=== PATIENT | female | born 1940 | race Caucasian/White ===

== ENCOUNTER 2018-07-26 11:37 | Observation (INO) ==
[2018-07-26] MEDS ORDERED: Ipratropium/Albuterol Neb 3 ML IH STA (12:41)
[2018-07-26 13:11] LABS: Basophils % 0.3 %; Eosinophils # 0.1 K/mcL (0.0-0.6); Eosinophils % 0.8 %; Hematocrit 39.4 % (35.3-44.9); Hemoglobin 12.4 g/dL (11.5-15.4); Immature Granulocytes % 0.3 % (0-4); Lymphocytes # 1.5 K/mcL (0.6-4.6); Lymphocytes % 14.6 %; Mean Corpuscular HGB Conc 31.5 g/dL (31.6-35.5); Mean Corpuscular Hemoglobin 25.6 pg (28.0-33.3); Mean Corpuscular Volume 81.4 fL (83.0-100.0); Monocytes # 0.5 K/mcL (0.0-1.3); Monocytes % 5.3 %; Platelet Count 317 K/mcL (140-400); Red Blood Count 4.84 M/mcL (3.82-4.97); Red Cell Distribution Width 15.9 % (11.5-14.5); Segmented Neutrophils % 78.7 %
[2018-07-26 13:18] LABS: INR 2.5; Prothrombin Time 28.5 Seconds (9.4-12.1)
[2018-07-26 13:33] LABS: Alanine Aminotransferase 9 Units/L (7-52); Albumin 3.9 g/dL (3.5-5.7); Albumin/Globulin Ratio 1.1 (1.1-2.2); Alkaline Phosphatase 84 Units/L (34-104); Aspartate Amino Transferase 19 Units/L (13-39); BUN/Creatinine Ratio 21 (6-26); Bilirubin,Total 0.6 mg/dL (0.3-1.0); Blood Urea Nitrogen 21 mg/dL (8-23); Calcium 9.2 mg/dL (8.6-10.3); Carbon Dioxide 23 mEq/L (23-29); Chloride 105 mEq/L (98-107); Globulin 3.5 g/dL (2.4-3.5); Glucose 186 mg/dL (70-105); Osmolality,Calculated 296 (280-300); Potassium 4.7 mEq/L (3.5-5.1); Sodium 139 mEq/L (136-145); Total Protein 7.4 g/dL (6.4-8.9); Troponin I < 0.03 ng/mL (< 0.04); eGFR For Non-African Americans 55 (> 60)
[2018-07-26] MEDS ORDERED: predniSONE 20 MG TABLET PO STA (15:24)
[2018-07-26] MEDS ORDERED: Furosemide 40 MG/4 ML VIAL IVP ONE (15:34)
--- NOTE | 2018-07-26 15:34 | Emergency Department Note ---
Disposition Clinical Impression: Lightheadedness, Near syncope Disposition: Admitted As Inpatient Condition: Good Referrals: Mario Serrano MD [Primary Care Provider] - General Adult HPI - General Chief complaint: ED Dizziness Stated complaint: dizzy, weakness x 3days Time Seen by Provider: 07/26/18 12:06 Source: patient, family Limitations: no limitations Nursing Notes Reviewed: Yes Vital Signs Reviewed: Yes - History of Present Illness HPI Narrative: Patient with past medical history of A. fib on Coumadin, COPD, diabetes, hypertension, hyperlipidemia presents today for evaluation of dizziness. She describes her dizziness as lightheadedness. She describes as feeling like she is going to pass out. She states that it does not feel like the room is spinning around her. She is unable to give any specific aggravating or alleviating factors. She states that it has happened to her while she has been sitting in bed. Does occasionally get worse when she is trying to get up and get around. Does not get worse specifically with head movement to the right of the left. Patient has not had any other specific associated factors. She states she has had a cough with white productive sputum for the last 2 months. She has had exertional dyspnea which is also been somewhat chronic in nature. She does wear home oxygen at night as needed. She has been using this more frequently. The daughters are in the room and states that she does not like to come to the hospital. They are concerned about her symptoms and feel as if she has been downplaying everything that has been going on. She will undergo furth er evaluation for near syncope. She will then be reevaluated with disposition pending. Pain Scale: 0 - Related Data Home Medications Medication Instructions Recorded Confirmed Acetaminophen [Tylenol] 500 mg PO Q6HR PRN 06/06/15 06/06/15 Albuterol Sulfate [Albuterol 2 puff IH Q6HR PRN 06/06/15 06/06/15 Inhaler] Aspirin 81 mg PO QAM 06/06/15 06/06/15 Diclofenac Sodium [Voltaren] 100 gm TP TID 06/06/15 06/06/15 Diltiazem HCl [Diltiazem 24Hr Cd] 360 mg PO QAM 06/06/15 06/06/15 Fluticasone/Salmeterol [Advair 1 each IH BID 06/06/15 06/06/15 500-50 Diskus] Glimepiride [Amaryl] 4 mg PO BID 06/06/15 06/06/15 LORazepam [Ativan] 0.5 mg PO BID 06/06/15 06/06/15 Levothyroxine [Synthroid] 25 mcg PO QAM 06/06/15 06/06/15 Lisinopril [Zestril] 20 mg PO QAM 06/06/15 06/06/15 Metformin [Glucophage] 1,000 mg PO BID 06/06/15 06/06/15 Montelukast [Singulair] 10 mg PO QPM 06/06/15 06/06/15 Potassium Chloride 10 meq PO QAM 06/06/15 06/06/15 Simvastatin [Zocor] 40 mg PO QPM 06/06/15 06/06/15 Tiotropium [Spiriva] 18 mcg IH DAILY 06/06/15 06/06/15 Warfarin [Coumadin] 5 mg PO QPM 06/06/15 06/06/15 Previous Rx's Medication Instructions Recorded Magnesium Hydroxide [Milk of 400 mg PO BID #20 mls 01/26/17 Magnesia] Magnesium Oxide [Magnesium] 400 mg PO BID #20 tablet 01/26/17 Metoprolol [Lopressor] 12.5 mg PO BID #10 tablet 01/26/17 Allergies Allergy/AdvReac Type Severity Reaction Status Date / Time No Known Allergies Allergy Verified 06/06/15 15:19 Review of Systems: CONSTITUTIONAL: Generalized weakness and fatigue No weight loss, fever, chills. HEENT: Eyes: No visual changes. Ears, Nose, Throat: No hearing loss, difficulty talking or unable to swallow. SKIN: No rash or itching. CARDIOVASCULAR: No chest pain, chest pressure or chest discomfort. No palpitations or edema. RESPIRATORY: Shortness of breath with exertion and white sputum production GASTROINTESTINAL: No anorexia, nausea, vomiting or diarrhea. No abdominal pain or blood. GENITOURINARY: No burning on urination or hematuria. NEUROLOGICAL: Dizziness best described as feeling as if she is going to pass out. No headache, paralysis, ataxia, numbness or tingling in the extremities. No change in bowel or bladder control. MUSCULOSKELETAL: No muscle pain, back pain, joint pain or stiffness. Past Medical History - Past Medical History Medical history: Reports: atrial fibrillation, COPD, diabetes, hyperlipidemia, hypertension Surgical history: Reports: breast surgery Psychiatric history: Reports: no psych history BLIND EYELETTER history: Reports: bilateral tubal ligation - Social History Smoking Status: Former smoker Smokeless Tobacco Status: No Alcohol use: Reports: none Drug use: Reports: none Physical Exam General: Well appearing, nontoxic, no acute distress Head: Normocephalic Atraumatic Eyes: PERRL, EOMI ENT: Airway patent, no stridor Neck: supple, no meningismus Chest: Mild wheezing best heard at the apex bilaterally Cardiac: Regular rate and rhythm Abdomen: soft, nontender, nondistended; no guarding, rebound, or tenderness to percussion Musculoskeletal: Calves symmetric, nontender, no significant swelling of the lower extremities. Skin: No rash, normal skin tone Neuro: Alert and Oriented to person, place, and time; No focal deficit, CN 2-12 symmetric and intact; strength and sensation throughout the upper lower e xtremities intact. Finger to nose intact without deficit. - General Limitations: no limitations General appearance: alert, in no apparent distress Course - Reevaluation(s) Reevaluation #1: Patient symptoms are nonspecific. EKG and blood work did not show any specific etiology. Her chest x-ray does have concern for vascular congestion and mild effusion. The patient overall has been reevaluated. She states she is symptom- free at this point. She states the breathing treatment did help her some. She is now on 2 L of oxygen which I did not appreciate on her arrival. She states that her breathing is better. She downplays her symptoms at home in regards to breathing and it does appear that she has had some significant dyspnea on exertion as well as white sputum production. She denies orthopnea and does not have significant swelling of the lower extremities. A BNP was added to her blood work which is nonspecific at approximately 100. The patient is accompanied by 3 family members. At this time do believe it will be best to further evaluate her lightheadedness as near syncope as she just describes it as such and denies vertiginous symptoms. - Consultations Consultation #1: Discussed with hospitalist. Patient accepted for admission. Vital Signs Temperature 98.0 F 07/26/18 11:44 Pulse Rate 88 07/26/18 11:44 Respiratory Rate 22 07/26/18 11:44 Blood Pressure 165/77 07/26/18 11:44 O2 Sat by Pulse Oximetry 91 07/26/18 11:44 Temperature 98.0 F 07/26/18 12:05 Pulse Rate 75 07/26/18 13:03 Respiratory Rate 16 07/26/18 13:16 Blood Pressure 142/69 07/26/18 13:03 O2 Sat by Pulse Oximetry 97 07/26/18 13:16 Oxygen Delivery Oxygen Delivery Room Air Medical Decision Making - Medical Records Medical records reviewed: Yes I reviewed the patient's medical records. - Lab Data Lab results reviewed: Yes I reviewed the patient's lab results. Result diagrams: 07/26/18 12:56 07/26/18 12:56 Lab Results 07/26/18 07/26/18 07/26/18 Range/Units 12:56 12:56 12:56 WBC 10.1 (4.3-11.1) K/mcL RBC 4.84 (3.82-4.97) M/mcL Hgb 12.4 (11.5-15.4) g/dL Hct 39.4 (35.3-44.9) % MCV 81.4 L (83.0-100.0) fL MCH 25.6 L (28.0-33.3) pg MCHC 31.5 L (31.6-35.5) g/dL RDW 15.9 H (11.5-14.5) % Plt Count 317 (140-400) K/mcL MPV 11.0 (9.4-12.4) fL Immature Gran % 0.3 (0-4) % Seg Neutrophils % 78.7 % Lymphocytes % 14.6 % Monocytes % 5.3 % Eosinophils % 0.8 % Basophils % 0.3 % Neutrophils # 8.0 (1.6-8.9) K/mcL Lymphocytes # 1.5 (0.6-4.6) K/mcL Monocytes # 0.5 (0.0-1.3) K/mcL Eosinophils # 0.1 (0.0-0.6) K/mcL Basophils # 0.0 (0.0-0.2) K/mcL PT 28.5 H (9.4-12.1) Seconds INR 2.5 Sodium 139 (136-145) mEq/L Potassium 4.7 (3.5-5.1) mEq/L Chloride 105 (98-107) mEq/L Carbon Dioxide 23 (23-29) mEq/L BUN 21 (8-23) mg/dL Creatinine 0.98 (0.60-1.20) mg/dL Est GFR ( Amer) > 60 (> 60) Est GFR (Non-Af Amer) 55 L (> 60) BUN/Creatinine Ratio 21 (6-26) Glucose 186 H (70-105) mg/dL Calculated Osmolality 296 (280-300) Calcium 9.2 (8.6-10.3) mg/dL Total Bilirubin 0.6 (0.3-1.0) mg/dL AST 19 (13-39) Units/L ALT 9 (7-52) Units/L Alkaline Phosphatase 84 (34-104) Units/L Troponin I < 0.03 (< 0.04) ng/mL B-Natriuretic Peptide (Less than 100) pg/mL Serum Total Protein 7.4 (6.4-8.9) g/dL Albumin 3.9 (3.5-5.7) g/dL Globulin 3.5 (2.4-3.5) g/dL Albumin/Globulin Ratio 1.1 (1.1-2.2) 07/26/18 Range/Units 12:56 WBC (4.3-11.1) K/mcL RBC (3.82-4.97) M/mcL Hgb (11.5-15.4) g/dL Hct (35.3-44.9) % MCV (83.0-100.0) fL MCH (28.0-33.3) pg MCHC (31.6-35.5) g/dL RDW (11.5-14.5) % Plt Count (140-400) K/mcL MPV (9.4-12.4) fL Immature Gran % (0-4) % Seg Neutrophils % % Lymphocytes % % Monocytes % % Eosinophils % % Basophils % % Neutrophils # (1.6-8.9) K/mcL Lymphocytes # (0.6-4.6) K/mcL Monocytes # (0.0-1.3) K/mcL Eosinophils # (0.0-0.6) K/mcL Basophils # (0.0-0.2) K/mcL PT (9.4-12.1) Seconds INR Sodium (136-145) mEq/L Potassium (3.5-5.1) mEq/L Chloride (98-107) mEq/L Carbon Dioxide (23-29) mEq/L BUN (8-23) mg/dL Creatinine (0.60-1.20) mg/dL Est GFR ( Amer) (> 60) Est GFR (Non-Af Amer) (> 60) BUN/Creatinine Ratio (6-26) Glucose (70-105) mg/dL Calculated Osmolality (280-300) Calcium (8.6-10.3) mg/dL Total Bilirubin (0.3-1.0) mg/dL AST (13-39) Units/L ALT (7-52) Units/L Alkaline Phosphatase (34-104) Units/L Troponin I (< 0.04) ng/mL B-Natriuretic Peptide 101 H (Less than 100) pg/mL Serum Total Protein (6.4-8.9) g/dL Albumin (3.5-5.7) g/dL Globulin (2.4-3.5) g/dL Albumin/Globulin Ratio (1.1-2.2) - Radiology Data Radiology results reviewed: Yes I reviewed the patient's radiology results. - EKG Data EKG #1 EKG attestation: Yes I reviewed and interpreted this EKG. EKG results narrative: EKG shows sinus rhythm with heart of 84. NC 185. QTC C4-6-3. Patient has no significant ST elevations or depressions. No previous EKG for comparison.
[2018-07-26] MEDS ORDERED: Acetaminophen 325 MG TABLET PO PRN (17:17)
[2018-07-26] MEDS ORDERED: Naloxone 0.4 MG/ML INJ IVP PRN (17:17)
[2018-07-26] MEDS ORDERED: *HR* HYDROcodone/Acet 5/325 mg TABLET PO PRN (17:17)
[2018-07-26] MEDS ORDERED: *HR* Dextrose 50 % in Water (Syg) 50 ML SYRINGE IVP PRN (17:22)
[2018-07-26] MEDS ORDERED: D5% in Water 1,000 ML IVC PRN (17:22)
[2018-07-26] MEDS ORDERED: Dextrose Gel 15 GM/37.5 ML TUBE PO PRN ×2 (17:22)
--- NOTE | 2018-07-26 18:35 | Internal Med History&Physical ---
Date of Encounter: 07/26/18 Time of Encounter: 18:35 Internal Medicine - H&P: HPI Chief complaint: Lightheadedness and dizziness Admitted From: Emergency Dept Plans for Post Hospital Care: Home History of present illness: Ms. Gardner is a 78 year old female past medical history hypothyroidism chronic obstructive pulmonary disease diabetes hypertension paroxysmal atrial fibrillation chronic diastolic heart failure. Patient has been experiencing dizziness/lightheadedness that has been going on for approximately 3 days. She does not describe it as his room is spinning, she has the lightheadedness when she is walking as well as when she is lying still-lightheadedness comes and goes and resolves on its own she is able to move her head without symptoms. Denies any falls has had some nausea but no vomiting did have some diarrhea yesterday that resolved. She does have shortness of breath , states this is chronic she normally is on oxygen 2-1/2 L at night however has not required any daytime use. Her sats were low on presentation improved with O2 and lasix She does have a cough with white sputum that has been going on for 2 months-she states that she normally has difficulty ambulating due to arthritis in her knees however she feels like she is "off"she denies any headaches or hearing loss she does say her vision is blurry at times. Also complains of shortness of breath on exertion as well as occasional palpitations however denies any chest pain she does have lower extremity swelling which she states is chronic denies any unusual weight loss or weight gain. She does have numbness and tingling in her feet however she does have neuropathy. Denies any slurred speech and facial droop or weakness. She presented to the emergency department with the above complaints EKG showed normal sinus rhythm lab work is unremarkable chest x-ray does show a questionable trace bilateral pleural effusion and underlying bibasilar airspace opacities possibly represent atelectasis or pneumonia however appearance could be related to overlying soft tissue. pulmonary vascular congestion and/or chronic change. Patient has been admitted for further workup and evaluation. Currently patient denies any chest pain shortness of breath and is hemodynamically stable at this time, she intubated without difficulty and denied any chest pain lightheadedness or palpitations Past Med Surg Social Fam HX - Past Medical History Medical history: atrial fibrillation, COPD, diabetes, hyperlipidemia, hypertension Psychiatric history: no psych history - Past Surgical History Surgical History: breast surgery Additional surgical history: mass removed from left breast - Social History Smoking Status: Former smoker Smokeless Tobacco Status: No Alcohol use: none Drug use: none - Family History Father Hx Family Cardiac Disorders: Yes Internal Medicine - H&P: Meds Diltiazem HCl [Diltiazem 24Hr Cd] 360 mg PO QAM 06/06/15 [History] Glimepiride [Amaryl] 4 mg PO BID 06/06/15 [History] Simvastatin [Zocor] 40 mg PO QPM 06/06/15 [History] Acetaminophen [Pain Reliever] 500 mg PO Q6H PRN 07/26/18 [History] Albuterol Sulfate [Proair Hfa] 1 puff IH Q4H PRN 07/26/18 [History] Esomeprazole Magnesium [Nexium 24Hr] 20 mg PO DAILY PRN 07/26/18 [History] Fluticasone/Salmeterol [Advair 500-50 Diskus] 1 each IH QAM 07/26/18 [History] LORazepam [Ativan] 0.5 mg PO BID 07/26/18 [History] Levothyroxine [Synthroid] 25 mcg PO QAM 07/26/18 [History] Losartan Potassium [Cozaar] 100 mg PO QAM 07/26/18 [History] Metformin HCl 1,000 mg PO BID 07/26/18 [History] Metoprolol Succinate 100 mg PO QPM 07/26/18 [History] Montelukast [Singulair] 10 mg PO HS 07/26/18 [History] Potassium Chloride [Klor-Con 10] 10 meq PO QAM 07/26/18 [History] Tiotropium [Spiriva] 18 mcg IH QAM 07/26/18 [History] Warfarin [Coumadin] 2.5 mg PO MOTU 07/26/18 [History] Warfarin [Coumadin] 5 mg PO SUWETHFRSA 07/26/18 [History] hydroCHLOROthiazide [Hydrochlorothiazide] 25 mg PO QAM 07/26/18 [History] Allergy/AdvReac Type Severity Reaction Status Date / Time No Known Allergies Allergy Verified 07/26/18 17:18 All Systems PM: A 10-system review of systems was performed and is negative for pertinent findings except as documented above in the HPI. - Constitutional Constitutional: no chills, no fever(s), no night sweats - EENT Eyes: blurry vision Ears: no ear discharge, no ear pain, no tinnitus Nose, mouth and throat: no dysphagia, no nasal discharge, no neck pain, no sore throat - Cardiovascular Cardiovascular ROS IM: dyspnea on exertion, edema, palpitations - Respiratory Respiratory: cough, dyspnea on exertion - Gastrointestinal Gastrointestinal: no abdominal pain, no diarrhea, no hematemesis, no hematochezia, no melena, no nausea, no vomiting - Genitourinary Genitourinary: no change in urinary stream, no dysuria, no flank pain, no hemat uria - Musculoskeletal Musculoskeletal ROS IM: arthralgias, no numbness, no tingling - Integumentary Integumentary IM: no rash, no unusual bruising - Neurological Neurological ROS: dizziness, no confusion, no convulsions, no focal weakness, no numbness, no tingling, no tremor(s) - Hematologic/Lymphatic Hematologic/Lymphatic: no easy bruising - Constitutional Vitals: Temp Pulse Resp BP Pulse Ox 98.0 F 89 20 142/76 97 07/26/18 12:05 07/26/18 17:19 07/26/18 17:19 07/26/18 17:19 07/26/18 17:19 General appearance: Present: A&O X 3, morbidly obese Exam: see below - Head Head exam: Present: atraumatic, normocephalic - Eye Eye exam: Present: PERRL, conjuntiva pink, sclera anicteric Pupils: Present: PERRL - Neck Neck exam general surgery: Present: supple, trachea midline. Absent: lymphadenopathy - Respiratory Respiratory exam: Present: CTAB, wheezes. Absent: accessory muscle use, rales, rhonchi Additional comments: Clear with occasional faint expiratory wheeze - Cardiovascular Cardiovascular exam: Present: RRR, +S1, +S2. Absent: diastolic murmur, gallop, rubs, systolic murmur - GI/Abdominal GI/Abdominal exam: Present: normal bowel sounds, soft, no peritoneal signs. Absent: distended, tenderness - Extremities Exam Extremities exam: Present: warm, radial pulses palpable and symmetrical. Absent: calf tenderness, cyanotic, pedal edema - Neurological Exam Neurological exam: Present: alert, CN II-XII intact, oriented X3, no focal deficits, strengths equal and symetr throughout. Absent: pronater drift, facial droop, speech deficit - Skin Skin exam: Present: dry, intact Internal Med - H&P Results - Labs CBC & Chem 7: 07/26/18 12:56 07/26/18 12:56 Labs: Short CBC 07/26/18 Range/Units 12:56 WBC 10.1 (4.3-11.1) K/mcL Hgb 12.4 (11.5-15.4) g/dL Hct 39.4 (35.3-44.9) % Plt Count 317 (140-400) K/mcL Neutrophils # 8.0 (1.6-8.9) K/mcL BMP 07/26/18 12:56 Sodium 139 Potassium 4.7 Chloride 105 Carbon Dioxide 23 BUN 21 Creatinine 0.98 Glucose 186 H Calcium 9.2 Cardiac Enzymes 07/26/18 Range/Units 12:56 Troponin I < 0.03 (< 0.04) ng/mL Liver Function 07/26/18 Range/Units 12:56 Total Bilirubin 0.6 (0.3-1.0) mg/dL AST 19 (13-39) Units/L ALT 9 (7-52) Units/L Alkaline Phosphatase 84 (34-104) Units/L Albumin 3.9 (3.5-5.7) g/dL - EKG Data EKG shows normal: sinus rhythm - Impressions ITS Impressions Chest X-Ray 07/26/18 12:06 IMPRESSION: 1. Questionable trace bilateral pleural effusions and underlying bibasilar airspace opacities potentially representing atelectasis or pneumonia. However, the appearance could also be related to overlying soft tissues. 2. Pulmonary vascular congestion and/or chronic interstitial change. D/ / Sincere Prince MD / Sincere Prince MD Interpreting Provider: Sincere Prince MD - Diagnostic Studies Chest x-ray Additional comments: Chest X-Ray 07/26/18 12:06 IMPRESSION: 1. Questionable trace bilateral pleural effusions and underlying bibasilar airspace opacities potentially representing atelectasis or pneumonia. However, the appearance could also be related to overlying soft tissues. 2. Pulmonary vascular congestion and/or chronic interstitial change. D/ / Sincere Prince MD / Sincere Prince MD Interpreting Provider: Sincere Prince MD - Assessment and plan (1) Lightheadedness Current Visit: Yes Status: Acute Assessment and plan: Patient has been experiencing some lightheadedness -denies any vertigo symptoms there is no nystagmus noted neuro check with no focal deficits cranial nerves II through XII intact-she does complain of off and on blurry vision-no urinary symptoms has chronic cough does have history of CHF and COPD does admit to palpitations-does have some vascular congestion as well as lower extremity edema which she states is chronic denies any weight gain she does have history of paroxysmal atrial fibrillation unsure if this is contributing to her lightheadedness- she did have low Sp02 on presentation and required O2 supplementation- which improved after oxygen and lasix does not appear to have any infectious process there is no elevated white count urinalysis is negative for fever Continuous cardiac monitoring We will check cardiac echo Orthostatics okay in the ER we will recheck in the a.m. Fall precautions monitor her electrolytes PT and OT for evaluation 6 min walk test before discharge (2) CHF (congestive heart failure) Current Visit: Yes Status: Chronic Assessment and plan: Patient reports history of CHF. Upon review of records it appears patient has history of diastolic heart failure-TTE 08/30/14 shows EF of 6065% probable mild DDD no significant valvular disease-she did have a nuclear stress test 08/30/14 with EF of greater than 70% negative for ischemia or infarct She has been experiencing shortness of breath on exertion as well as some palpitations She does have lower extremity edema which she states is chronic We will obtain cardiac echo Monitor intake and output daily weight We will continue with Lasix 20 IVP daily Continue with metoprolol trend troponins Qualifiers: Heart failure type: diastolic Heart failure chronicity: chronic Qualified Code(s): I50.32 - Chronic diastolic (congestive) heart failure (3) Atrial fibrillation Current Visit: No Status: Acute Assessment and plan: 1 history of paroxysmal atrial fibrillation currently in sinus rhythm-does complain of palpitations and shortness of breath Continue with cardiazem Continue with Coumadin pharmacy to dose Continuous cardiac monitoring Obtain cardiac echo Qualifiers: Atrial fibrillation type: paroxysmal Qualified Code(s): I48.0 - Paroxysmal atrial fibrillation (4) COPD (chronic obstructive pulmonary disease) Current Visit: No Status: Acute Assessment and plan: History of COPD she does use oxygen at night-continue with oxygen as needed-she does not appear to be in any exacerbation Continue with bronchodilators Qualifiers: COPD type: unspecified COPD Qualified Code(s): J44.9 - Chronic obstructive pulmonary disease, unspecified (5) Diabetes mellitus Current Visit: No Status: Acute Assessment and plan: Accu-Cheks before meals and at bedtime with sliding scale insulin we will hold metformin/Amaryl for now resume at discharge Diabetic diet Qualifiers: Diabetes mellitus type: type 2 Diabetes mellitus superintendent container terminal insulin use: without fpc use Diabetes mellitus complication status: without complication Qualified Code(s): E11.9 - Type 2 diabetes mellitus without complications (6) Hyperlipidemia Current Visit: No Status: Acute Assessment and plan: Continue a statin Qualifiers: Hyperlipidemia type: unspecified Qualified Code(s): E78.5 - Hyperlipidemia, unspecified (7) Obesity Current Visit: No Status: Acute Assessment and plan: Encouraged lifestyle changes including diet as well as exercise PT OT evaluation Qualifiers: Obesity type: due to excess calories Obesity classification: adult class 3 (BMI >= 40) Serious obesity comorbidity presence: with serious comorbidity Body mass index: BMI 45.0-49.9 Qualified Code(s): E66.01 - Morbid (severe) obesity due to excess calories; Z68.42 - Body mass index (BMI) 45.0-49.9, adult (8) DVT prophylaxis Current Visit: Yes Status: Acute Assessment and plan: On Coumadin - Time Spent With Patient Total time spent is greater than 50% in coordination of care (as documented) at patient's floor/unit and/or counseling patient:
[2018-07-26] MEDS ORDERED: *HR* Warfarin 2.5 MG TABLET PO ONE (20:30)
[2018-07-26] MEDS ORDERED: Metoprolol XL (24 HR) Succ 50 MG TAB.ER.24H PO SCH (20:45)
[2018-07-26] MEDS ORDERED: Insulin LISPRO 300 UNITS/3 ML VIAL SQ SCH (21:00)
[2018-07-27 00:33] LABS: Bilirubin,Urine Negative (Negative); Blood,Urine Negative (Negative); Clarity,Urine Clear (Clear); Color,Urine Yellow (Yellow); Glucose,Urine (UA) Normal (Normal); Ketones,Urine Negative (Negative); Leukocyte Esterase,Urine Trace (Negative); Nitrite,Urine Positive (Negative); PH,Urine 5.5 pH Units (5.0-8.0); Protein,Urine Negative (Neg-Trace); Specific Gravity,Urine 1.011 (1.010-1.025); Urobilinogen,Urine Normal (Normal)
[2018-07-27 00:36] LABS: Bacteria,Urine Many per hpf (None-Few); Hyaline Casts,Urine None Seen per lpf (None-Few); RBC,Urine 0-3 per hpf (0-3); Squamous Epithelial Cell,Urine Moderate per lpf (None-Few)
[2018-07-27 01:00] LABS: Basophils % 0.1 %; Hematocrit 38.4 % (35.3-44.9); Hemoglobin 11.9 g/dL (11.5-15.4); Immature Granulocytes % 0.3 % (0-4); Lymphocytes # 0.8 K/mcL (0.6-4.6); Lymphocytes % 7.6 %; Mean Corpuscular Volume 80.7 fL (83.0-100.0); Mean Platelet Volume 10.5 fL (9.4-12.4); Monocytes # 0.1 K/mcL (0.0-1.3); Monocytes % 0.9 %; Neutrophils # 9.5 K/mcL (1.6-8.9); Platelet Count 277 K/mcL (140-400); Red Blood Count 4.76 M/mcL (3.82-4.97); Red Cell Distribution Width 15.7 % (11.5-14.5); Segmented Neutrophils % 91.1 %
[2018-07-27 01:18] LABS: INR 2.3; Prothrombin Time 25.7 Seconds (9.4-12.1)
[2018-07-27 01:21] LABS: Calcium 9.4 mg/dL (8.6-10.3); Chol/HDL Ratio 3.9 (0-4.9); Magnesium 1.5 mg/dL (1.6-2.6); Potassium 3.8 mEq/L (3.5-5.1)
[2018-07-27 01:33] LABS: Thyroid Stimulating Hormone 1.549 mcIU/mL (0.340-5.600)
[2018-07-27] MEDS ORDERED: Levothyroxine 25 MCG TABLET PO SCH (06:30)
[2018-07-27] MEDS ORDERED: Insulin LISPRO 300 UNITS/3 ML VIAL SQ SCH ×3 (07:30→21:00)
--- NOTE | 2018-07-27 08:59 | Internal Med Progress Note ---
Hospitalist Progress Note - Encounter Date of Encounter: 07/27/18 Time of Encounter: 08:56 - Subjective Interval History: Feel better this morning, no c/o dizziness; fatigue is improving. Able to ambulate throughout room without difficulty or dyspnea on exertion. C/o increased urinary frequency as well as urge to urinate. - Exam Vitals: Temp Pulse Resp BP Pulse Ox 97.8 F 83 20 133/80 95 07/27/18 06:47 07/27/18 06:47 07/27/18 06:47 07/27/18 06:47 07/27/18 06:47 Exam: PHYSICAL EXAMINATION: GENERAL: The patient is an obese elder female, no distress, A&O x3 HEENT: Head is normocephalic and atraumatic. Extraocular muscles are intact. Pupils are equal, round, and reactive to light and accommodation. NECK: Supple. No carotid bruits. No lymphadenopathy or thyromegaly. LUNGS: Clear to auscultation AP&L. HEART: Regular rate and rhythm, s1, s2 without murmur. ABDOMEN: Soft, nontender, and nondistended. Positive bowel sounds. No hepatosplenomegaly was noted. EXTREMITIES: Without any cyanosis, clubbing, rash, lesions. non-pitting, generalized BLE edema NEUROLOGIC: Cranial nerves II through XII are grossly intact. - Assessment and Plan (1) Lightheadedness Current Visit: Yes Status: Acute Assessment and Plan: Patient has been experiencing some lightheadedness, weakness and fatigue some dyspnea on exertion but reports h/o CHF and COPD CXR per my evaluation with chronic changes, possible mild pulmonary vascular congestion treated with IV lasix resting comfortably on room air without respiratory distress Continuous cardiac monitoring We will check cardiac echo Negative for orthostasis Fall precautions PT and OT for evaluation 6 min walk test before discharge (2) UTI (urinary tract infection) Current Visit: Yes Status: Acute Assessment and Plan: Presented with lightheadedness weakness fatigue Urinalysis positive for nitrates and leukocyte esterase, as well as pyuria and bacteriuria Patient reporting increased urinary frequency and urgency; denies dysuria No prior history of UTI Treat with 1 g Rocephin daily urine culture pending (3) Atrial fibrillation Current Visit: No Status: Acute Assessment and Plan: history of PAF currently in sinus rhythm Has C/o of intermittent palpitations Continue with cardiazem Continue with Coumadin pharmacy to dose Continuous cardiac monitoring Obtain cardiac echo 07/27- remains SR rate of 70-80's, resting comfortably in bed at this time, continue with POC as stated above. (4) Diabetes mellitus Current Visit: No Status: Acute Assessment and Plan: History of diabetes Blood glucose remains elevated this morning Increase sliding scale coverage Continue holding oral hypoglycemic agents while inpatient Continue diabetic diet Resume metformin/Amaryl DC (5) COPD (chronic obstructive pulmonary disease) Current Visit: No Status: Acute Assessment and Plan: per hx not in acute exacerbation Continue with bronchodilators resting comfortably on room air without distress (6) Obesity Current Visit: No Status: Acute Assessment and Plan: Discussed lifestyle changes including diet as well as exercise PT/OT evaluation (7) Hyperlipidemia Current Visit: No Status: Acute Assessment and Plan: Cont statin (8) CHF (congestive heart failure) Current Visit: Yes Status: Chronic Assessment and Plan: Patient reports history of CHF. Upon review of records it appears patient has history of diastolic heart failure-TTE 08/30/14 shows EF of 60-65% probable mild DD, no significant valvular disease nuclear stress test 08/30/14 with EF of greater than 70% negative for ischemia or infarct She has been experiencing shortness of breath on exertion as well as some palpitations Now resting comfortably on room air at bedside. Able to ambulate throughout the room without difficulty or O2 She does have lower extremity non-pitting edema which she states is chronic obtain echo-pending Monitor intake and output daily weight Discontinue Lasix 20 IVP daily Continue with metoprolol Serial troponins negative 3 (9) DVT prophylaxis Current Visit: Yes Status: Acute Assessment and Plan: On Coumadin pharmacy dosing - Time Spent with Patient Total time spent is greater than 50% in coordination of care (as documented) at patient's floor/unit and/or counseling patient: Internal Medicine: Result - Labs CBC & Chem 7: 07/27/18 00:49 07/27/18 00:49 Labs: Short CBC 07/26/18 07/27/18 Range/Units 12:56 00:49 WBC 10.1 10.4 (4.3-11.1) K/mcL Hgb 12.4 11.9 (11.5-15.4) g/dL Hct 39.4 38.4 (35.3-44.9) % Plt Count 317 277 (140-400) K/mcL Neutrophils # 8.0 9.5 H (1.6-8.9) K/mcL BMP 07/26/18 07/27/18 12:56 00:49 Sodium 139 137 Potassium 4.7 3.8 Chloride 105 102 Carbon Dioxide 23 24 BUN 21 28 H Creatinine 0.98 1.12 Glucose 186 H 239 H Calcium 9.2 9.4 Cardiac Enzymes 07/26/18 07/26/18 07/27/18 Range/Units 12:56 19:22 00:49 Troponin I < 0.03 < 0.03 < 0.03 (< 0.04) ng/mL 07/27/18 Range/Units 07:52 Troponin I < 0.03 (< 0.04) ng/mL Liver Function 07/26/18 Range/Units 12:56 Total Bilirubin 0.6 (0.3-1.0) mg/dL AST 19 (13-39) Units/L ALT 9 (7-52) Units/L Alkaline Phosphatase 84 (34-104) Units/L Albumin 3.9 (3.5-5.7) g/dL Urine 07/27/18 Range/Units 00:10 Urine Color Yellow (Yellow) Urine Clarity Clear (Clear) Urine pH 5.5 (5.0-8.0) pH Units Ur Specific Jessie 1.011 (1.010-1.025) Urine Protein Negative (Neg-Trace) mg/dL Urine Glucose (UA) Normal (Normal) mg/dL - ABG Interpretation ABG results: PT/INR, D-dimer PT 25.7 Seconds (9.4-12.1) H 07/27/18 00:49 - Impressions Impressions Chest X-Ray 07/26/18 12:06 IMPRESSION: 1. Questionable trace bilateral pleural effusions and underlying bibasilar airspace opacities potentially representing atelectasis or pneumonia. However, the appearance could also be related to overlying soft tissues. 2. Pulmonary vascular congestion and/or chronic interstitial change. D/ / Sincere Prince MD / Sincere Prince MD Interpreting Provider: Sincere Prince MD Consult Discharge Plan - Plan Referrals: Mario Serrano MD [Primary Care Provider] - (3) Atrial fibrillation Qualifiers: Atrial fibrillation type: paroxysmal Qualified Code(s): I48.0 - Paroxysmal atrial fibrillation (4) Diabetes mellitus Qualifiers: Diabetes mellitus type: type 2 Diabetes mellitus extermination inspector insulin use: without extermination inspector use Diabetes mellitus complication status: without complication Qualified Code(s): E11.9 - Type 2 diabetes mellitus without complications (5) COPD (chronic obstructive pulmonary disease) Qualifiers: COPD type: unspecified COPD Qualified Code(s): J44.9 - Chronic obstructive pulmonary disease, unspecified (6) Obesity Qualifiers: Obesity type: due to excess calories Obesity classification: adult class 3 (BMI >= 40) Serious obesity comorbidity presence: with serious comorbidity Body mass index: BMI 45.0-49.9 Qualified Code(s): E66.01 - Morbid (severe) obesity due to excess calories; Z68.42 - Body mass index (BMI) 45.0-49.9, adult (7) Hyperlipidemia Qualifiers: Hyperlipidemia type: unspecified Qualified Code(s): E78.5 - Hyperlipidemia, unspecified (8) CHF (congestive heart failure) Qualifiers: Heart failure type: diastolic Heart failure chronicity: chronic Qualified C ode(s): I50.32 - Chronic diastolic (congestive) heart failure
[2018-07-27] MEDS ORDERED: *HR* LORazepam 0.5 MG TABLET PO SCH (09:00)
[2018-07-27] MEDS ORDERED: cefTRIAXone 1,000 MG in 0.9 % Sodium Chloride Mini Bag 100 ML IVPB SCH (09:00)
[2018-07-27] MEDS ORDERED: Tiotropium 18 MCG inhalation IH SCH (09:00)
[2018-07-27] MEDS ORDERED: Budesonide/Formoterol 160/4.5 1 PUFF INH IH SCH (09:00)
[2018-07-27] MEDS ORDERED: Furosemide 20 MG/2 ML VIAL IVP SCH (09:00)
[2018-07-27] MEDS ORDERED: Diltiazem CD (24hr) 180 MG CAPSULE PO SCH (09:00)
[2018-07-27] MEDS ORDERED: Perflutren Lipid Microsphere 1.3 ML in 0.9 % Sodium Chloride 8.7 ML IVP ONE (09:42)
[2018-07-27 10:57] VITALS: BP 149/73
--- NOTE | 2018-07-27 11:43 | Discharge Summary ---
- NOTES TO OUTPATIENT PROVIDER Notes to Outpatient Provider: basic d/c follow-up Orders not resulted at time of discharge: Pending orders 07/27/18 00:10 Culture,Urine [RM] Stat 07/28/18 04:00 Hgb A1C AM 0400 Prothrombin Time INR [COAG] AM 0400 07/29/18 04:00 Prothrombin Time INR [COAG] AM 0400 07/30/18 04:00 Prothrombin Time INR [COAG] AM 0400 Date of Encounter: 07/27/18 Time of Encounter: 11:38 - Discharge Diagnosis (1) Lightheadedness Priority: Primary Status: Acute Assessment and Plan: Patient has been experiencing some lightheadedness, weakness and fatigue some dyspnea on exertion but reports h/o CHF and COPD CXR per my evaluation with chronic changes, possible mild pulmonary vascular congestion treated with IV lasix resting comfortably on room air without respiratory distress Continuous cardiac monitoring We will check cardiac echo Negative for orthostasis Fall precautions PT and OT for evaluation 6 min walk test before discharge (2) UTI (urinary tract infection) Priority: Secondary Status: Acute Assessment and Plan: Presented with lightheadedness weakness fatigue Urinalysis positive for nitrates and leukocyte esterase, as well as pyuria and bacteriuria Patient reporting increased urinary frequency and urgency; denies dysuria No prior history of UTI Treat with 1 g Rocephin daily urine culture pending Qualifiers: Urinary tract infection type: site unspecified Hematuria presence: without hematuria Qualified Code(s): N39.0 - Urinary tract infection, site not specified (3) Atrial fibrillation Priority: Secondary Status: Acute Assessment and Plan: history of PAF currently in sinus rhythm Has C/o of intermittent palpitations Continue with cardiazem Continue with Coumadin pharmacy to dose Continuous cardiac monitoring Obtain cardiac echo 07/27- remains SR rate of 70-80's, resting comfortably in bed at this time, continue with POC as stated above. Qualifiers: Atrial fibrillation type: paroxysmal Qualified Code(s): I48.0 - Paroxysmal atrial fibrillation (4) Diabetes mellitus Priority: Secondary Status: Acute Assessment and Plan: History of diabetes Blood glucose remains elevated this morning Increase sliding scale coverage Continue holding oral hypoglycemic agents while inpatient Continue diabetic diet Resume metformin/Amaryl DC Qualifiers: Diabetes mellitus type: type 2 Diabetes mellitus prison insulin use: without intermediate card tender use Diabetes mellitus complication status: without complication Qualified Code(s): E11.9 - Type 2 diabetes mellitus without complications (5) COPD (chronic obstructive pulmonary disease) Priority: Secondary Status: Acute Assessment and Plan: per hx not in acute exacerbation Continue with bronchodilators resting comfortably on room air without distress Qualifiers: COPD type: unspecified COPD Qualified Code(s): J44.9 - Chronic obstructive pulmonary disease, unspecified (6) Obesity Priority: Secondary Status: Acute Assessment and Plan: Discussed lifestyle changes including diet as well as exercise PT/OT evaluation Qualifiers: Obesity type: due to excess calories Obesity classification: adult class 3 (BMI >= 40) Serious obesity comorbidity presence: with serious comorbidity Body mass index: BMI 45.0-49.9 Qualified Code(s): E66.01 - Morbid (severe) obesity due to excess calories; Z68.42 - Body mass index (BMI) 45.0-49.9, adult (7) Hyperlipidemia Priority: Secondary Status: Acute Assessment and Plan: Cont statin Qualifiers: Hyperlipidemia type: unspecified Qualified Code(s): E78.5 - Hyperlipidemia, unspecified (8) CHF (congestive heart failure) Priority: Secondary Status: Chronic Assessment and Plan: Patient reports history of CHF. Upon review of records it appears patient has history of diastolic heart failure-TTE 08/30/14 shows EF of 60-65% probable mild DD, no significant valvular disease nuclear stress test 08/30/14 with EF of greater than 70% negative for ischemia or infarct She has been experiencing shortness of breath on exertion as well as some palpitations Now resting comfortably on room air at bedside. Able to ambulate throughout the room without difficulty or O2 She does have lower extremity non-pitting edema which she states is chronic obtain echo-pending Monitor intake and output daily weight Discontinue Lasix 20 IVP daily Continue with metoprolol Serial troponins negative 3 Qualifiers: Heart failure type: diastolic Heart failure chronicity: chronic Qualified Code(s): I50.32 - Chronic diastolic (congestive) heart failure (9) DVT prophylaxis Priority: Secondary Status: Acute Hospital course: Ms. Gardner is a 78 year old female admitted with dizziness, and lightheadedness x 3 days. Positive UA with nitrates, pyuria and leukocyte esterase likely contributing to dizziness and fatigue. Also concerns for mild CHF exacerbation. Treated with lasix and improved; no longer dyspneic. Treated with IV Rocephin x1 dose. D/c with 5-day course of Omnicef. On day of d/c dizziness has resolved. Discharge discussed with: patient, nurse - Time Spent with Patient Total time spent providing and/or coordinating discharge services: Less than 30 minutes - Discharge Medications Home Medications: Diltiazem HCl [Diltiazem 24Hr Cd] 360 mg PO QAM 06/06/15 [History] Glimepiride [Amaryl] 4 mg PO BID 06/06/15 [History] Simvastatin [Zocor] 40 mg PO QPM 06/06/15 [History] Acetaminophen [Pain Reliever] 500 mg PO Q6H PRN 07/26/18 [History] Albuterol Sulfate [Proair Hfa] 1 puff IH Q4H PRN 07/26/18 [History] Esomeprazole Magnesium [Nexium 24Hr] 20 mg PO DAILY PRN 07/26/18 [History] Fluticasone/Salmeterol [Advair 500-50 Diskus] 1 each IH QAM 07/26/18 [History] LORazepam [Ativan] 0.5 mg PO BID 07/26/18 [History] Levothyroxine [Synthroid] 25 mcg PO QAM 07/26/18 [History] Losartan Potassium [Cozaar] 100 mg PO QAM 07/26/18 [History] Metformin HCl 1,000 mg PO BID 07/26/18 [History] Metoprolol Succinate 100 mg PO QPM 07/26/18 [History] Montelukast [Singulair] 10 mg PO HS 07/26/18 [History] Potassium Chloride [Klor-Con 10] 10 meq PO QAM 07/26/18 [History] Tiotropium [Spiriva] 18 mcg IH QAM 07/26/18 [History] Warfarin [Coumadin] 2.5 mg PO MOTU 07/26/18 [History] Warfarin [Coumadin] 5 mg PO SUWETHFRSA 07/26/18 [History] hydroCHLOROthiazide [Hydrochlorothiazide] 25 mg PO QAM 07/26/18 [History] Cefdinir [Omnicef] 300 mg PO BID 5 Days #10 capsule 07/27/18 [Rx] Allergies/Adverse Reactions: Allergy/AdvReac Type Severity Reaction Status Date / Time No Known Allergies Allergy Verified 07/26/18 17:18 Date of admission: 07/26/18 16:37 Primary care physician: Mario Serrano MD Consults: 07/26/18 19:23 Consult to Physical Therapy [CONS] Routine Comment: Evaluate, develop and implement POC Reason for Consult: Unsteady gait Does patient have active BEDREST order?: No Is patient medically & hemodynamically stable?: Yes Patient assessed for mobility or mobilized this visit?: No 07/26/18 19:25 Consult to Occupational Therapy [CONS] Routine Comment: Evaluate, develop and implement POC Reason for Consult: Deconditioning/lightheadedness Does patient have active BEDREST order?: No Is patient medically & hemodynamically stable?: Yes Patient assessed for mobility or mobilized this visit?: Yes 07/27/18 08:14 Consult to Nurse Navigator [CONS] Routine Comment: COPD,CHF Discharging clinician: Ronan Griffith Anticipated date of discharge: 07/27/18 - Constitutional Vitals: Temp Pulse Resp BP Pulse Ox 97.7 F 68 16 149/73 94 07/27/18 10:55 07/27/18 10:55 07/27/18 10:55 07/27/18 10:55 07/27/18 10:55 General appearance: Present: A&O X 3, morbidly obese Exam: see exam - Head Head exam: Present: atraumatic, normocephalic - Eye Eye exam: Present: PERRL, conjuntiva pink, sclera anicteric Pupils: Present: PERRL - Neck Neck exam general surgery: Present: supple, trachea midline. Absent: lymphadenopathy - Respiratory Respiratory exam: Present: CTAB. Absent: accessory muscle use, rales, rhonchi, wheezes - Cardiovascular Cardiovascular exam: Present: RRR, +S1, +S2. Absent: diastolic murmur, gallop, rubs, systolic murmur - GI/Abdominal GI/Abdominal exam: Present: normal bowel sounds, soft, no peritoneal signs. Absent: distended, tenderness - Extremities Exam Extremities exam: Present: warm, radial pulses palpable and symmetrical. Absent: calf tenderness, cyanotic, pedal edema - Neurological Exam Neurological exam: Present: CN II-XII intact, oriented X3, no focal deficits. Absent: pronater drift, facial droop, speech deficit - Skin Skin exam: Present: dry, intact - Patient Status Disposition: Home, Self-Care Condition: Good Functional capacity at discharge: independent ambulation Overall status at discharge: patient is progressing back to baseline - Discharge Instructions Instructions: Urinary Tract Infection in Women (DC) Follow Up With: Mario Serrano MD [Primary Care Provider] - 08/03/18 10:15 am Forms: ED Satisfaction Letter - Diet and Activity Activity: increase activity as tolerated, resume usual activities as tolerated Diet: diabetic diet, low fat, low cholesterol, low salt diet
[2018-07-27] MEDS ORDERED: Warfarin perPT PO PRN (18:00)
[2018-07-27] MEDS ORDERED: *HR* Warfarin 5 MG TABLET PO ONE (18:00)
--- NOTE | 2018-07-30 19:18 | Electrocardiograph Report ---
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
== END 2018-07-27 13:57 | disposition home or self-care (01) ==
LOC: 3BNU 11:37 → EMEROOARM 11:37 → 3BNU 17:46
PROVIDERS: ADMIT Hospitalist; ATTEND Hospitalist

== ENCOUNTER 2020-06-13 16:21 | Observation (INO) ==
[2020-06-13] MEDS ORDERED: Ipratropium/Albuterol Neb 3 ML IH ONE (16:53)
[2020-06-13] MEDS ORDERED: methylPREDNISolone 125 MG/2 ML VIAL IVP ONE (16:53)
[2020-06-13 17:04] LABS: Basophils # 0.1 K/mcL (0.0-0.2); Basophils % 0.4 %; Eosinophils # 0.1 K/mcL (0.0-0.6); Eosinophils % 0.7 %; Hematocrit 38.1 % (35.3-44.9); Hemoglobin 11.4 g/dL (11.5-15.4); Immature Granulocytes % 0.3 % (0-4); Lymphocytes # 1.6 K/mcL (0.6-4.6); Lymphocytes % 11.2 %; Mean Corpuscular HGB Conc 29.9 g/dL (31.6-35.5); Mean Corpuscular Hemoglobin 24.2 pg (28.0-33.3); Mean Corpuscular Volume 80.9 fL (83.0-100.0); Monocytes # 0.9 K/mcL (0.0-1.3); Monocytes % 6.2 %; Neutrophils # 11.3 K/mcL (1.6-8.9); Platelet Count 299 K/mcL (140-400); Red Blood Count 4.71 M/mcL (3.82-4.97); Red Cell Distribution Width 17.2 % (11.5-14.5); Segmented Neutrophils % 81.2 %; White Blood Count 13.9 K/mcL (4.3-11.1)
[2020-06-13 17:11] LABS: INR 1.9; Prothrombin Time 21.8 Seconds (9.4-12.1)
[2020-06-13 17:13] LABS: Activated Partial Thrombo Time 41.5 Seconds (26.0-36.0)
[2020-06-13 17:27] LABS: Alanine Aminotransferase 10 Units/L (7-52); Albumin 3.9 g/dL (3.5-5.7); Albumin/Globulin Ratio 1.2 (1.1-2.2); Alkaline Phosphatase 74 Units/L (34-104); Aspartate Amino Transferase 10 Units/L (13-39); BUN/Creatinine Ratio 22 (6-26); Bilirubin,Direct 0.1 mg/dL (0.0-0.2); Bilirubin,Indirect 0.4 mg/dL (0.0-1.0); Bilirubin,Total 0.5 mg/dL (0.3-1.0); Blood Urea Nitrogen 20 mg/dL (8-23); Calcium 9.4 mg/dL (8.6-10.3); Carbon Dioxide 24 mEq/L (23-29); Chloride 103 mEq/L (98-107); Globulin 3.2 g/dL (2.4-3.5); Glucose 183 mg/dL (70-105); Osmolality,Calculated 295 (280-300); Potassium 4.2 mEq/L (3.5-5.1); Sodium 139 mEq/L (136-145); Total Protein 7.1 g/dL (6.4-8.9); Troponin I < 0.03 ng/mL (< 0.04); eGFR For African Americans > 60 (> 60); eGFR For Non-African Americans 59 (> 60)
[2020-06-13] MEDS ORDERED: cefTRIAXone 1,000 MG in Water for inj. (sterile) 10 ML IVP ONE (18:05)
[2020-06-13] MEDS ORDERED: Azithromycin 500 MG in D5% in Water 250 ML IVPB ONE (18:05)
[2020-06-13 18:16] LABS: Adenovirus Not Detected (Not Detect); Bordetella Pertussis Not Detected (Not Detect); Chlamydophila pneumoniae Not Detected (Not Detect); Coronavirus 229E Not Detected (Not Detect); Coronavirus HKU1 Not Detected (Not Detect); Coronavirus NL63 Not Detected (Not Detect); Coronavirus OC43 Not Detected (Not Detect); Human Metapneumovirus Not Detected (Not Detect); Human Rhinovirus/Enterovirus Not Detected (Not Detect); Influenza A Subtype 2009 H1 Not Detected (Not Detect); Influenza B Not Detected (Not Detect); Mycoplasma pneumoniae Not Detected (Not Detect); Parainfluenza Virus 1 Not Detected (Not Detect); Parainfluenza Virus 2 Not Detected (Not Detect); Parainfluenza Virus 3 Not Detected (Not Detect); Parainfluenza Virus 4 Not Detected (Not Detect); Respiratory Syncytial Virus Not Detected (Not Detect); SARS-CoV-2 Not Detected (Not Detect)
[2020-06-13] MEDS ORDERED: Furosemide 40 MG/4 ML VIAL IVP ONE (19:44)
[2020-06-13] MEDS ORDERED: Naloxone 0.4 MG/ML INJ IVP PRN (22:54)
[2020-06-13] MEDS ORDERED: D5% in Water 1,000 ML IVC PRN (22:56)
[2020-06-13] MEDS ORDERED: *HR* Dextrose 50 % in Water (Vial) 50 ML VIAL IVP PRN (22:56)
[2020-06-13] MEDS ORDERED: Dextrose Gel 15 GM/37.5 ML TUBE PO PRN ×2 (22:56)
[2020-06-13] MEDS ORDERED: *HR* Warfarin 5 MG TABLET PO ONE (23:15)
[2020-06-14] MEDS ORDERED: Albuterol 2.5 MG/3 ML NEBULIZER IH PRN (03:48)
[2020-06-14] MEDS ORDERED: Perflutren Lipid Microsphere 1.3 ML in 0.9 % Sodium Chloride 8.7 ML IVP PRN (03:53)
[2020-06-14] MEDS: Ipratropium/Albuterol Neb 3 ML IH SCH ×4 (04:04→23:39)
[2020-06-14 04:07] LABS: Prothrombin Time 22.7 Seconds (9.4-12.1)
[2020-06-14] MEDS ORDERED: MethylPREDNISolone 40 MG/ML VIAL IVP SCH (06:00)
[2020-06-14] MEDS: Insulin LISPRO 300 UNITS/3 ML VIAL SQ SCH ×3 (08:15→16:42)
[2020-06-14] MEDS: DilTIAZem CD (24hr) 240 MG CAP.ER.24H PO SCH (08:15)
[2020-06-14 08:27] LABS: Basophils % 0.1 %; Hematocrit 39.4 % (35.3-44.9); Hemoglobin 11.9 g/dL (11.5-15.4); Immature Granulocytes % 0.4 % (0-4); Lymphocytes # 0.8 K/mcL (0.6-4.6); Lymphocytes % 7.6 %; Mean Corpuscular HGB Conc 30.2 g/dL (31.6-35.5); Mean Corpuscular Volume 79.4 fL (83.0-100.0); Mean Platelet Volume 11.1 fL (9.4-12.4); Monocytes # 0.1 K/mcL (0.0-1.3); Monocytes % 0.8 %; Neutrophils # 9.1 K/mcL (1.6-8.9); Platelet Count 308 K/mcL (140-400); Red Blood Count 4.96 M/mcL (3.82-4.97); Red Cell Distribution Width 17.3 % (11.5-14.5); Segmented Neutrophils % 91.1 %
[2020-06-14 08:44] LABS: BUN/Creatinine Ratio 23 (6-26); Blood Urea Nitrogen 19 mg/dL (8-23); Calcium 9.7 mg/dL (8.6-10.3); Carbon Dioxide 26 mEq/L (23-29); Chloride 102 mEq/L (98-107); Glucose 267 mg/dL (70-105); Magnesium 1.7 mg/dL (1.6-2.6); Osmolality,Calculated 296 (280-300); Phosphorous 3.1 mg/dL (2.7-4.5); Sodium 137 mEq/L (136-145); eGFR For African Americans > 60 (> 60); eGFR For Non-African Americans > 60 (> 60)
[2020-06-14 08:51] LABS: Troponin I < 0.03 ng/mL (< 0.04)
[2020-06-14] MEDS ORDERED: cefTRIAXone 1,000 MG in Water for inj. (sterile) 10 ML IVP SCH (09:00)
[2020-06-14] MEDS ORDERED: DICLOFENAC SODIUM 2 GM TP PRN (11:36)
[2020-06-14] MEDS ORDERED: Budesonide/Formoterol 160/4.5 1 PUFF INH IH SCH (11:45)
[2020-06-14] MEDS: Azithromycin 250 MG TABLET PO SCH (11:51)
[2020-06-14 13:53] LABS: Estimated Average Glucose 166 mg/dl
[2020-06-14] MEDS: Budesonide/Formoterol 160/4.5 1 PUFF INH IH SCH ×2 (15:18→23:39)
[2020-06-14] MEDS ORDERED: Azithromycin 500 MG in D5% in Water 250 ML IVPB SCH (16:00)
[2020-06-14] MEDS ORDERED: Warfarin perPT PO PRN (18:00)
[2020-06-14] MEDS ORDERED: *HR* Warfarin 5 MG TABLET PO ONE (18:00)
[2020-06-14] MEDS ORDERED: Metoprolol XL (24 HR) Succ 50 MG TAB.ER.24H PO SCH (18:00)
[2020-06-14] MEDS ORDERED: Insulin DETEMIR 100 UNIT/ML X5UNITS SQ SCH (21:00)
[2020-06-14] MEDS ORDERED: Insulin LISPRO 300 UNITS/3 ML VIAL SQ SCH (21:00)
[2020-06-14] MEDS: *HR* LORazepam 0.5 MG TABLET PO SCH (22:11)
[2020-06-15 01:37] LABS: Hematocrit 35.4 % (35.3-44.9); Hemoglobin 10.7 g/dL (11.5-15.4); Mean Corpuscular HGB Conc 30.2 g/dL (31.6-35.5); Mean Corpuscular Hemoglobin 24.3 pg (28.0-33.3); Mean Corpuscular Volume 80.3 fL (83.0-100.0); Mean Platelet Volume 11.6 fL (9.4-12.4); Platelet Count 313 K/mcL (140-400); Red Blood Count 4.41 M/mcL (3.82-4.97); Red Cell Distribution Width 17.3 % (11.5-14.5); White Blood Count 14.9 K/mcL (4.3-11.1)
[2020-06-15 01:48] LABS: Prothrombin Time 22.8 Seconds (9.4-12.1)
[2020-06-15 01:55] LABS: BUN/Creatinine Ratio 33 (6-26); Blood Urea Nitrogen 32 mg/dL (8-23); Calcium 9.2 mg/dL (8.6-10.3); Carbon Dioxide 25 mEq/L (23-29); Chloride 105 mEq/L (98-107); Glucose 192 mg/dL (70-105); Osmolality,Calculated 302 (280-300); Potassium 3.8 mEq/L (3.5-5.1); Sodium 140 mEq/L (136-145); eGFR For African Americans > 60 (> 60); eGFR For Non-African Americans 56 (> 60)
[2020-06-15] MEDS: Ipratropium/Albuterol Neb 3 ML IH SCH ×2 (03:09→10:17)
[2020-06-15] MEDS ORDERED: Levothyroxine 25 MCG TABLET PO SCH (06:30)
[2020-06-15] MEDS ORDERED: predniSONE 20 MG TABLET PO SCH (09:00)
[2020-06-15] MEDS ORDERED: Furosemide 20 MG TABLET PO SCH (09:00)
[2020-06-15 09:32] VITALS: BP 145/79
[2020-06-15] MEDS: Budesonide/Formoterol 160/4.5 1 PUFF INH IH SCH (10:17)
[2020-06-15] MEDS: DilTIAZem CD (24hr) 240 MG CAP.ER.24H PO SCH (10:42)
[2020-06-15] MEDS: Insulin LISPRO 300 UNITS/3 ML VIAL SQ SCH (10:42)
[2020-06-15] MEDS: *HR* LORazepam 0.5 MG TABLET PO SCH (10:42)
[2020-06-15] MEDS: Azithromycin 250 MG TABLET PO SCH (10:42)
[2020-06-15] MEDS ORDERED: FLU Vac QV HD 20-21 (65YR+)/PF 0.7 ML SYRINGE IM ONE (11:14)
[2020-06-15] MEDS ORDERED: FLU Vac QV 20-21 (6Month+)/PF 0.5 ML SYRINGE IM ONE (12:15)
== END 2020-06-15 13:13 | disposition home health service (06) ==
LOC: 2ANU 16:21 → EMEROOARM 16:21 → SUATTDRO 21:42 → 2ANU 22:18
PROVIDERS: ADMIT Internal Medicine; ATTEND Internal Medicine

== ENCOUNTER 2021-09-14 06:02 | Inpatient (IN) ==
[2021-09-14 07:20] LABS: Basophils % 0.3 %; Eosinophils % 0.1 %; Hematocrit 35.1 % (35.3-44.9); Hemoglobin 10.8 g/dL (11.5-15.4); Immature Granulocytes % 0.4 % (0-4); Lymphocytes # 0.6 K/mcL (0.6-4.6); Lymphocytes % 7.7 %; Mean Corpuscular HGB Conc 30.8 g/dL (31.6-35.5); Mean Corpuscular Hemoglobin 25.3 pg (28.0-33.3); Mean Corpuscular Volume 82.2 fL (83.0-100.0); Monocytes # 0.5 K/mcL (0.0-1.3); Monocytes % 6.9 %; Neutrophils # 6.3 K/mcL (1.6-8.9); Platelet Count 185 K/mcL (140-400); Red Blood Count 4.27 M/mcL (3.82-4.97); Red Cell Distribution Width 17.1 % (11.5-14.5); Segmented Neutrophils % 84.6 %; White Blood Count 7.4 K/mcL (4.3-11.1)
[2021-09-14 07:26] LABS: Bacteria,Urine Few per hpf (None-Few); Bilirubin,Urine Negative (Negative); Blood,Urine Small (Negative); Clarity,Urine Turbid (Clear); Color,Urine Yellow (Yellow); Glucose,Urine (UA) Normal (Normal); Ketones,Urine Negative (Negative); Leukocyte Esterase,Urine Negative (Negative); Mucus,Urine Few per lpf (None-Few); Nitrite,Urine Negative (Negative); PH,Urine 5.5 pH Units (5.0-8.0); Protein,Urine 30 mg/dL (Neg-Trace); RBC,Urine 0-3 per hpf (0-3); Specific Gravity,Urine 1.019 (1.010-1.025); Squamous Epithelial Cell,Urine Few per hpf (None-Few); Urobilinogen,Urine Normal (Normal); WBC,Urine 0-3 per hpf (0-3)
[2021-09-14 07:41] LABS: BUN/Creatinine Ratio 26 (6-26); Blood Urea Nitrogen 35 mg/dL (8-23); Calcium 8.3 mg/dL (8.6-10.3); Carbon Dioxide 19 mEq/L (23-29); Chloride 106 mEq/L (98-107); Glucose 209 mg/dL (70-105); Osmolality,Calculated 292 (280-300); Potassium 5.2 mEq/L (3.5-5.1); Sodium 134 mEq/L (136-145); Troponin I < 0.03 ng/mL (< 0.04); eGFR For African Americans 46 (> 60); eGFR For Non-African Americans 38 (> 60)
[2021-09-14 07:56] LABS: Influenza A PCR Negative (Negative); Influenza B PCR Negative (Negative); Resp. Syncytial Virus PCR Negative (Negative)
[2021-09-14] MEDS ORDERED: 0.9 % Sodium Chloride 1,000 ML IV ONE (08:18)
[2021-09-14 08:23] LABS: SARS-CoV-2 by PCR (In House) Positive (Negative)
[2021-09-14] MEDS ORDERED: MethylPREDNISolone 40 MG/ML VIAL IVP ONE (09:17)
[2021-09-14] MEDS ORDERED: Ipratropium/Albuterol Neb 3 ML IH ONE (09:17)
[2021-09-14] MEDS ORDERED: Naloxone 0.4 MG/ML INJ IVP PRN (10:55)
[2021-09-14] MEDS ORDERED: Ondansetron 4 MG/2 ML VIAL IVP PRN (10:55)
[2021-09-14] MEDS ORDERED: Melatonin 3 MG TABLET PO PRN (10:55)
[2021-09-14 13:47] LABS: VBG HCO3 21 mEq/L (21-27); VBG PCO2 41 mmHg (41-51); VBG PH 7.33 pH Units (7.32-7.42); VBG PO2 102 mmHg (25-50)
[2021-09-14 14:06] LABS: INR 2.5; Prothrombin Time 27.7 Seconds (9.4-12.1)
[2021-09-14 14:07] LABS: Albumin 3.5 g/dL (3.5-5.7); Albumin/Globulin Ratio 1.1 (1.1-2.2); Bilirubin,Direct 0.1 mg/dL (0.0-0.2); Bilirubin,Indirect 0.3 mg/dL (0.0-1.0); Bilirubin,Total 0.4 mg/dL (0.3-1.0); Globulin 3.1 g/dL (2.4-3.5); Total Protein 6.6 g/dL (6.4-8.9)
[2021-09-14] MEDS ORDERED: SODIUM ZIRCONIUM CYCLOSILICATE 5 GM POWD.PACK PO ONE (14:09)
[2021-09-14 14:14] LABS: Potassium 4.7 mEq/L (3.5-5.1)
[2021-09-14 14:16] LABS: Magnesium 1.8 mg/dL (1.6-2.6); Phosphorous 2.4 mg/dL (2.7-4.5); Troponin I < 0.03 ng/mL (< 0.04)
[2021-09-14] MEDS: Ipratropium 1 PUFF INHALER IH SCH ×3 (14:17→19:44)
[2021-09-14] MEDS: Budesonide/Formoterol 160/4.5 1 PUFF INH IH SCH (19:45)
[2021-09-14] MEDS ORDERED: Remdesivir 200 MG in 0.9 % Sodium Chloride 100 ML IVPB ONE (19:55)
[2021-09-14] MEDS: Chlorhexidine Rinse 15 ML MOUTHWASH MM SCH (21:14)
[2021-09-14] MEDS ORDERED: *HR* Heparin 5,000 UNIT/ML VIAL SQ SCH (22:00)
[2021-09-15] MEDS: Ipratropium 1 PUFF INHALER IH SCH ×6 (00:02→20:00)
[2021-09-15 04:17] LABS: Hematocrit 33.3 % (35.3-44.9); Hemoglobin 10.3 g/dL (11.5-15.4); Immature Granulocytes % 0.5 % (0-4); Lymphocytes # 0.5 K/mcL (0.6-4.6); Lymphocytes % 11.8 %; Mean Corpuscular HGB Conc 30.9 g/dL (31.6-35.5); Mean Corpuscular Hemoglobin 25.1 pg (28.0-33.3); Mean Corpuscular Volume 81.2 fL (83.0-100.0); Mean Platelet Volume 11.5 fL (9.4-12.4); Monocytes # 0.2 K/mcL (0.0-1.3); Monocytes % 4.6 %; Neutrophils # 3.5 K/mcL (1.6-8.9); Platelet Count 180 K/mcL (140-400); Red Cell Distribution Width 16.8 % (11.5-14.5); Segmented Neutrophils % 83.1 %; White Blood Count 4.2 K/mcL (4.3-11.1)
[2021-09-15 04:30] LABS: INR 2.5; Prothrombin Time 28.2 Seconds (9.4-12.1)
[2021-09-15 04:42] LABS: Albumin 3.4 g/dL (3.5-5.7); Albumin/Globulin Ratio 1.1 (1.1-2.2); Bilirubin,Direct 0.1 mg/dL (0.0-0.2); Bilirubin,Indirect 0.2 mg/dL (0.0-1.0); Bilirubin,Total 0.3 mg/dL (0.3-1.0); Globulin 3.1 g/dL (2.4-3.5); Total Protein 6.5 g/dL (6.4-8.9)
[2021-09-15 04:44] LABS: Alanine Aminotransferase 15 Units/L (7-52); Albumin 3.5 g/dL (3.5-5.7); Albumin/Globulin Ratio 1.2 (1.1-2.2); Alkaline Phosphatase 60 Units/L (34-104); Aspartate Amino Transferase 20 Units/L (13-39); BUN/Creatinine Ratio 25 (6-26); Bilirubin,Total 0.3 mg/dL (0.3-1.0); Blood Urea Nitrogen 26 mg/dL (8-23); Calcium 8.2 mg/dL (8.6-10.3); Carbon Dioxide 21 mEq/L (23-29); Chloride 108 mEq/L (98-107); Glucose 378 mg/dL (70-105); Magnesium 2.1 mg/dL (1.6-2.6); Osmolality,Calculated 304 (280-300); Phosphorous 2.6 mg/dL (2.7-4.5); Potassium 4.5 mEq/L (3.5-5.1); Sodium 137 mEq/L (136-145); Total Protein 6.5 g/dL (6.4-8.9); eGFR For African Americans > 60 (> 60); eGFR For Non-African Americans 50 (> 60)
[2021-09-15 05:00] LABS: Folate 7.5 ng/mL (3.0-16.0)
[2021-09-15 06:22] LABS: Ferritin 61 ng/mL (10-120); Transferrin 197 mg/dL (203-362)
[2021-09-15 06:31] LABS: Estimated Average Glucose 186 mg/dl; Hemoglobin A1C 8.1 %
[2021-09-15 06:44] LABS: Iron < 10 mcg/dL (50-170)
[2021-09-15] MEDS: Budesonide/Formoterol 160/4.5 1 PUFF INH IH SCH ×2 (07:59→20:00)
[2021-09-15] MEDS: Insulin LISPRO 300 UNITS/3 ML VIAL SUBQ SCH ×4 (08:23→21:40)
[2021-09-15] MEDS: Chlorhexidine Rinse 15 ML MOUTHWASH MM SCH ×2 (08:24→21:38)
[2021-09-15] MEDS: Cholecalciferol (D-3) 1,000 UNIT (25MCG) TABLET PO SCH (08:24)
[2021-09-15] MEDS: cefTRIAXone 1,000 MG in Water for inj. (sterile) 10 ML IVP SCH (15:20)
[2021-09-15] MEDS: Azithromycin 500 MG in 0.9 % Sodium Chloride 250 ML IVPB SCH (15:21)
[2021-09-15] MEDS ORDERED: *HR* Warfarin 5 MG TABLET PO ONE (18:00)
[2021-09-15] MEDS ORDERED: Warfarin perPT PO PRN (18:00)
[2021-09-15] MEDS: Remdesivir 100 MG in 0.9 % Sodium Chloride 100 ML IVPB SCH (21:32)
[2021-09-15] MEDS: Insulin DETEMIR 100 UNIT/ML X5UNITS SUBQ SCH (21:40)
[2021-09-16 03:39] LABS: Basophils % 0.1 %; Hematocrit 33.4 % (35.3-44.9); Hemoglobin 10.2 g/dL (11.5-15.4); Immature Granulocytes % 0.7 % (0-4); Lymphocytes # 0.6 K/mcL (0.6-4.6); Lymphocytes % 5.4 %; Mean Corpuscular HGB Conc 30.5 g/dL (31.6-35.5); Mean Corpuscular Hemoglobin 24.4 pg (28.0-33.3); Mean Corpuscular Volume 79.9 fL (83.0-100.0); Mean Platelet Volume 10.7 fL (9.4-12.4); Monocytes # 0.7 K/mcL (0.0-1.3); Monocytes % 5.6 %; Neutrophils # 10.2 K/mcL (1.6-8.9); Platelet Count 190 K/mcL (140-400); Red Blood Count 4.18 M/mcL (3.82-4.97); Red Cell Distribution Width 17.2 % (11.5-14.5); Segmented Neutrophils % 88.2 %
[2021-09-16 03:44] LABS: White Blood Count 11.6 K/mcL (4.3-11.1)
[2021-09-16 03:51] LABS: INR 2.6; Prothrombin Time 28.6 Seconds (9.4-12.1)
[2021-09-16 04:01] LABS: Alanine Aminotransferase 16 Units/L (7-52); Albumin 3.4 g/dL (3.5-5.7); Albumin/Globulin Ratio 1.1 (1.1-2.2); Alkaline Phosphatase 59 Units/L (34-104); Aspartate Amino Transferase 18 Units/L (13-39); BUN/Creatinine Ratio 31 (6-26); Bilirubin,Indirect 0.4 mg/dL (0.0-1.0); Bilirubin,Total 0.4 mg/dL (0.3-1.0); Blood Urea Nitrogen 31 mg/dL (8-23); C-Reactive Protein 31 mg/L (Less than 10); Calcium 8.5 mg/dL (8.6-10.3); Carbon Dioxide 23 mEq/L (23-29); Chloride 109 mEq/L (98-107); Globulin 3.1 g/dL (2.4-3.5); Glucose 190 mg/dL (70-105); Lactate Dehydrogenase 232 Units/L (140-271); Osmolality,Calculated 302 (280-300); Potassium 4.4 mEq/L (3.5-5.1); Sodium 140 mEq/L (136-145); Total Protein 6.5 g/dL (6.4-8.9); eGFR For African Americans > 60 (> 60); eGFR For Non-African Americans 53 (> 60)
[2021-09-16] MEDS: Ipratropium 1 PUFF INHALER IH SCH ×7 (04:09→23:38)
[2021-09-16 04:18] LABS: Ferritin 74 ng/mL (10-120)
[2021-09-16] MEDS ORDERED: *HR* Metoprolol 5 MG/5 ML VIAL IVP ONE (07:12)
[2021-09-16] MEDS: Budesonide/Formoterol 160/4.5 1 PUFF INH IH SCH ×2 (08:10→20:15)
[2021-09-16] MEDS: Insulin LISPRO 300 UNITS/3 ML VIAL SUBQ SCH ×4 (08:44→22:25)
[2021-09-16] MEDS: Chlorhexidine Rinse 15 ML MOUTHWASH MM SCH ×2 (08:45→22:19)
[2021-09-16] MEDS: Cholecalciferol (D-3) 1,000 UNIT (25MCG) TABLET PO SCH (08:45)
[2021-09-16] MEDS: Acetaminophen 325 MG TABLET PO PRN (11:17)
[2021-09-16] MEDS: Azithromycin 500 MG in 0.9 % Sodium Chloride 250 ML IVPB SCH (14:46)
[2021-09-16] MEDS: cefTRIAXone 1,000 MG in Water for inj. (sterile) 10 ML IVP SCH (14:47)
[2021-09-16] MEDS ORDERED: *HR* Warfarin 2.5 MG TABLET PO ONE (18:00)
[2021-09-16] MEDS: Remdesivir 100 MG in 0.9 % Sodium Chloride 100 ML IVPB SCH (22:19)
[2021-09-16] MEDS: Insulin DETEMIR 100 UNIT/ML X5UNITS SUBQ SCH (22:20)
[2021-09-17] MEDS: Ipratropium 1 PUFF INHALER IH SCH ×4 (03:50→15:56)
[2021-09-17] MEDS ORDERED: *HR* Metoprolol 5 MG/5 ML VIAL IVP ONE ×2 (05:43→10:57)
[2021-09-17 05:51] LABS: Basophils % 0.2 %; Hematocrit 36.5 % (35.3-44.9); Hemoglobin 11.2 g/dL (11.5-15.4); Immature Granulocytes % 0.6 % (0-4); Lymphocytes # 0.8 K/mcL (0.6-4.6); Lymphocytes % 9.3 %; Mean Corpuscular HGB Conc 30.7 g/dL (31.6-35.5); Mean Corpuscular Hemoglobin 24.3 pg (28.0-33.3); Mean Corpuscular Volume 79.2 fL (83.0-100.0); Mean Platelet Volume 10.9 fL (9.4-12.4); Monocytes # 0.7 K/mcL (0.0-1.3); Monocytes % 8.2 %; Neutrophils # 7.1 K/mcL (1.6-8.9); Platelet Count 226 K/mcL (140-400); Red Blood Count 4.61 M/mcL (3.82-4.97); Red Cell Distribution Width 17.4 % (11.5-14.5); Segmented Neutrophils % 81.7 %; White Blood Count 8.7 K/mcL (4.3-11.1)
[2021-09-17 06:08] LABS: Prothrombin Time 33.4 Seconds (9.4-12.1)
[2021-09-17 06:16] LABS: BUN/Creatinine Ratio 30 (6-26); Blood Urea Nitrogen 28 mg/dL (8-23); Carbon Dioxide 23 mEq/L (23-29); Chloride 106 mEq/L (98-107); Glucose 192 mg/dL (70-105); Osmolality,Calculated 299 (280-300); Potassium 4.2 mEq/L (3.5-5.1); Sodium 139 mEq/L (136-145); eGFR For African Americans > 60 (> 60); eGFR For Non-African Americans 57 (> 60)
[2021-09-17 06:19] LABS: Albumin 3.6 g/dL (3.5-5.7); Albumin/Globulin Ratio 1.1 (1.1-2.2); Bilirubin,Direct 0.1 mg/dL (0.0-0.2); Bilirubin,Indirect 0.4 mg/dL (0.0-1.0); Bilirubin,Total 0.5 mg/dL (0.3-1.0); Globulin 3.2 g/dL (2.4-3.5); Total Protein 6.8 g/dL (6.4-8.9)
[2021-09-17] MEDS ORDERED: NON-FORMULARY MEDICATION 1 EACH EACH (Diclofenac Sodium [Voltaren] 100 GM Gel..Gram.) TD PRN (07:22)
[2021-09-17] MEDS: Budesonide/Formoterol 160/4.5 1 PUFF INH IH SCH (07:50)
[2021-09-17] MEDS ORDERED: Furosemide 20 MG TABLET PO SCH (09:00)
[2021-09-17] MEDS ORDERED: NON-FORMULARY MEDICATION 1 EACH EACH (Fluticasone/Salmeterol [Advair 500-50 Diskus] 1 EACH IH SCH (09:00)
[2021-09-17] MEDS ORDERED: Levothyroxine 25 MCG TABLET PO SCH (09:00)
[2021-09-17] MEDS ORDERED: DilTIAZem CD (24hr) 180 MG CAP.ER.24H PO SCH (09:00)
[2021-09-17] MEDS: Chlorhexidine Rinse 15 ML MOUTHWASH MM SCH (09:39)
[2021-09-17] MEDS: Cholecalciferol (D-3) 1,000 UNIT (25MCG) TABLET PO SCH (09:40)
[2021-09-17] MEDS: Insulin LISPRO 300 UNITS/3 ML VIAL SUBQ SCH ×3 (09:42→16:45)
[2021-09-17] MEDS: Acetaminophen 325 MG TABLET PO PRN (10:07)
[2021-09-17 16:09] VITALS: BP 159/70; PULSE 92; TEMP 97.6; O2SAT 93
[2021-09-17] MEDS: Azithromycin 500 MG in 0.9 % Sodium Chloride 250 ML IVPB SCH (16:44)
[2021-09-17] MEDS: cefTRIAXone 1,000 MG in Water for inj. (sterile) 10 ML IVP SCH (16:44)
[2021-09-17] MEDS ORDERED: *HR* Warfarin 1 MG TABLET PO ONE (18:00)
[2021-09-17] MEDS ORDERED: Metoprolol XL (24 HR) Succ 50 MG TAB.ER.24H PO SCH (18:00)
[2021-09-17] MEDS ORDERED: *HR* LORazepam 0.5 MG TABLET PO SCH (21:00)
== END 2021-09-17 18:30 | disposition home health service (06) | DRG 177 ==
LOC: 2ANU 06:02 → EMEROOARM 06:02 → 2ANU 11:23
PROVIDERS: ADMIT Internal Medicine; ATTEND Internal Medicine

== ENCOUNTER 2022-01-31 13:50 | Inpatient (IN) ==
[2022-01-31 14:24] LABS: Basophils # 0.1 K/mcL (0.0-0.2); Basophils % 0.5 %; Eosinophils # 0.4 K/mcL (0.0-0.6); Eosinophils % 3.6 %; Hematocrit 35.3 % (35.3-44.9); Hemoglobin 11.1 g/dL (11.5-15.4); Immature Granulocytes % 0.3 % (0-4); Lymphocytes # 1.4 K/mcL (0.6-4.6); Lymphocytes % 11.6 %; Mean Corpuscular HGB Conc 31.4 g/dL (31.6-35.5); Mean Corpuscular Hemoglobin 26.4 pg (28.0-33.3); Mean Platelet Volume 11.2 fL (9.4-12.4); Monocytes # 0.7 K/mcL (0.0-1.3); Monocytes % 5.4 %; Neutrophils # 9.4 K/mcL (1.6-8.9); Platelet Count 258 K/mcL (140-400); Red Cell Distribution Width 15.4 % (11.5-14.5); Segmented Neutrophils % 78.6 %; White Blood Count 11.9 K/mcL (4.3-11.1)
[2022-01-31 15:16] LABS: BUN/Creatinine Ratio 20 (6-26); Blood Urea Nitrogen 26 mg/dL (8-23); Calcium 9.1 mg/dL (8.6-10.3); Carbon Dioxide 27 mEq/L (23-29); Chloride 103 mEq/L (98-107); Glucose 185 mg/dL (70-105); Osmolality,Calculated 298 (280-300); Potassium 4.6 mEq/L (3.5-5.1); Sodium 139 mEq/L (136-145); Troponin I < 0.03 ng/mL (< 0.04); eGFR For African Americans 48 (> 60); eGFR For Non-African Americans 40 (> 60)
[2022-01-31] MEDS ORDERED: Nitroglycerin 0.4 MG TAB.SUBL SL STA (15:24)
[2022-01-31] MEDS ORDERED: Furosemide 40 MG/4 ML VIAL IVP ONE (15:24)
[2022-01-31] MEDS ORDERED: Ipratropium/Albuterol Neb 3 ML IH ONE (16:00)
[2022-01-31] MEDS ORDERED: *HR* LORazepam 0.5 MG TABLET PO PRN (17:09)
[2022-01-31] MEDS ORDERED: Acetaminophen 325 MG TABLET PO PRN (17:12)
[2022-01-31] MEDS ORDERED: Melatonin 3 MG TABLET PO PRN (17:12)
[2022-01-31] MEDS ORDERED: Ondansetron 4 MG/2 ML VIAL IVP PRN (17:12)
[2022-01-31] MEDS ORDERED: Ipratropium/Albuterol Neb 3 ML IH PRN (17:14)
[2022-01-31 18:38] LABS: INR 2.2; Prothrombin Time 24.4 Seconds (9.4-12.1)
[2022-01-31] MEDS: Azithromycin 250 MG TABLET PO SCH (18:38)
[2022-01-31] MEDS: predniSONE 20 MG TABLET PO SCH (18:38)
[2022-01-31 18:56] LABS: Adenovirus Not Detected (Not Detect); Bordetella Pertussis Not Detected (Not Detect); Chlamydophila pneumoniae Not Detected (Not Detect); Coronavirus 229E Not Detected (Not Detect); Coronavirus HKU1 Not Detected (Not Detect); Coronavirus NL63 Not Detected (Not Detect); Coronavirus OC43 Not Detected (Not Detect); Human Metapneumovirus Not Detected (Not Detect); Human Rhinovirus/Enterovirus Not Detected (Not Detect); Influenza A Subtype 2009 H1 Not Detected (Not Detect); Influenza B Not Detected (Not Detect); Mycoplasma pneumoniae Not Detected (Not Detect); Parainfluenza Virus 1 Not Detected (Not Detect); Parainfluenza Virus 2 Not Detected (Not Detect); Parainfluenza Virus 3 Not Detected (Not Detect); Parainfluenza Virus 4 Not Detected (Not Detect); Respiratory Syncytial Virus Not Detected (Not Detect); SARS-CoV-2 Not Detected (Not Detect)
[2022-01-31] MEDS: Ipratropium/Albuterol Neb 3 ML IH SCH (20:44)
[2022-01-31] MEDS: Metoprolol XL (24 HR) Succ 50 MG TAB.ER.24H PO SCH (21:57)
[2022-01-31] MEDS: *HR* Warfarin 2.5 MG TABLET PO SCH (22:40)
[2022-02-01] MEDS: Ipratropium/Albuterol Neb 3 ML IH SCH ×4 (03:55→19:57)
[2022-02-01] MEDS: Levothyroxine 25 MCG TABLET PO SCH (05:56)
[2022-02-01 06:21] LABS: BUN/Creatinine Ratio 21 (6-26); Blood Urea Nitrogen 24 mg/dL (8-23); Calcium 9.1 mg/dL (8.6-10.3); Carbon Dioxide 28 mEq/L (23-29); Chloride 102 mEq/L (98-107); Glucose 244 mg/dL (70-105); Magnesium 1.6 mg/dL (1.6-2.6); Osmolality,Calculated 300 (280-300); Potassium 4.5 mEq/L (3.5-5.1); Sodium 139 mEq/L (136-145); Troponin I < 0.03 ng/mL (< 0.04); eGFR For African Americans 56 (> 60); eGFR For Non-African Americans 46 (> 60)
[2022-02-01] MEDS: Furosemide 20 MG/2 ML VIAL IVP SCH ×2 (09:55→17:11)
[2022-02-01] MEDS: Azithromycin 250 MG TABLET PO SCH (09:55)
[2022-02-01] MEDS: DilTIAZem CD (24hr) 180 MG CAP.ER.24H PO SCH (09:55)
[2022-02-01] MEDS: predniSONE 20 MG TABLET PO SCH (09:55)
[2022-02-01 16:05] LABS: INR 2.1; Prothrombin Time 22.9 Seconds (9.4-12.1)
[2022-02-01] MEDS: Insulin LISPRO 300 UNITS/3 ML VIAL SUBQ SCH ×2 (17:47→23:06)
[2022-02-01] MEDS: *HR* Warfarin 2.5 MG TABLET PO SCH (17:47)
[2022-02-01] MEDS ORDERED: Warfarin perPT PO PRN (18:00)
[2022-02-01] MEDS: Metoprolol XL (24 HR) Succ 50 MG TAB.ER.24H PO SCH (20:11)
[2022-02-02] MEDS: Ipratropium/Albuterol Neb 3 ML IH SCH ×4 (03:38→20:59)
[2022-02-02] MEDS: Levothyroxine 25 MCG TABLET PO SCH (06:05)
[2022-02-02] MEDS: Azithromycin 250 MG TABLET PO SCH (08:39)
[2022-02-02] MEDS: Furosemide 20 MG/2 ML VIAL IVP SCH ×2 (08:39→17:28)
[2022-02-02] MEDS: DilTIAZem CD (24hr) 180 MG CAP.ER.24H PO SCH (08:39)
[2022-02-02] MEDS: predniSONE 20 MG TABLET PO SCH (08:39)
[2022-02-02] MEDS: Insulin LISPRO 300 UNITS/3 ML VIAL SUBQ SCH ×4 (08:41→21:15)
[2022-02-02 15:30] LABS: INR 1.8; Prothrombin Time 20.5 Seconds (9.4-12.1)
[2022-02-02 15:40] LABS: Calcium 9.9 mg/dL (8.6-10.3); Potassium 4.5 mEq/L (3.5-5.1)
[2022-02-02] MEDS ORDERED: *HR* Warfarin 3 MG TABLET PO ONE (18:00)
[2022-02-02] MEDS: Metoprolol XL (24 HR) Succ 50 MG TAB.ER.24H PO SCH (21:14)
[2022-02-03] MEDS: Ipratropium/Albuterol Neb 3 ML IH SCH ×2 (04:13→09:51)
[2022-02-03] MEDS: Levothyroxine 25 MCG TABLET PO SCH (05:21)
[2022-02-03 07:05] LABS: INR 1.6; Prothrombin Time 17.5 Seconds (9.4-12.1)
[2022-02-03 07:20] VITALS: BP 154/82; PULSE 70; TEMP 98; O2SAT 93
[2022-02-03] MEDS: Insulin LISPRO 300 UNITS/3 ML VIAL SUBQ SCH (07:26)
[2022-02-03] MEDS ORDERED: Furosemide 40 MG TABLET PO SCH (09:00)
[2022-02-03] MEDS: DilTIAZem CD (24hr) 180 MG CAP.ER.24H PO SCH (09:38)
[2022-02-03] MEDS: predniSONE 20 MG TABLET PO SCH (09:38)
[2022-02-03] MEDS: Azithromycin 250 MG TABLET PO SCH (09:38)
== END 2022-02-03 10:24 | disposition home or self-care (01) | DRG 291 ==
LOC: 3ANU 13:50 → EMEROOARM 13:50 → SUATTDRO 16:14 → 3ANU 16:53
PROVIDERS: ADMIT Internal Medicine; ATTEND Internal Medicine

== ENCOUNTER 2022-04-16 04:00 | Inpatient (IN) ==
[2022-04-16] MEDS ORDERED: Ipratropium/Albuterol Neb 3 ML ONE (04:06)
[2022-04-16] MEDS ORDERED: methylPREDNISolone 125 MG/2 ML VIAL IVP ONE (04:10)
[2022-04-16] MEDS ORDERED: Ipratropium/Albuterol Neb 3 ML IH ONE (04:10)
[2022-04-16] MEDS ORDERED: Azithromycin 500 MG in 0.9 % Sodium Chloride 250 ML IVPB ONE (04:18)
[2022-04-16 04:23] LABS: ABG Base Excess -1 mEq/L (-2 to 3); ABG HCO3 26 mEq/L (21-27); ABG Oxygen Saturation 99 % (95-98); ABG PCO2 50 mmHg (35-45); ABG PH 7.33 pH Units (7.32-7.45); ABG PO2 151 mmHg (85-104); ABG TCO2 28 mEq/L (20-26)
[2022-04-16 04:24] LABS: Hematocrit 34.3 % (35.3-44.9); Hemoglobin 10.5 g/dL (11.5-15.4); Immature Granulocytes % 0.5 % (0-4); Lymphocytes % 11.8 %; Mean Corpuscular HGB Conc 30.6 g/dL (31.6-35.5); Mean Corpuscular Hemoglobin 26.3 pg (28.0-33.3); Mean Platelet Volume 10.7 fL (9.4-12.4); Monocytes % 6.8 %; Platelet Count 225 K/mcL (140-400); Red Blood Count 3.99 M/mcL (3.82-4.97); Red Cell Distribution Width 20.2 % (11.5-14.5); Segmented Neutrophils % 76.7 %; White Blood Count 9.8 K/mcL (4.3-11.1)
[2022-04-16 04:25] LABS: Basophils % 0.4 %; Eosinophils # 0.4 K/mcL (0.0-0.6); Eosinophils % 3.8 %; Lymphocytes # 1.2 K/mcL (0.6-4.6); Monocytes # 0.7 K/mcL (0.0-1.3); Neutrophils # 7.5 K/mcL (1.6-8.9)
[2022-04-16 04:25] LABS: VBG HCO3 27 mEq/L (21-27); VBG PCO2 61 mmHg (41-51); VBG PH 7.26 pH Units (7.32-7.42); VBG PO2 98 mmHg (25-50)
[2022-04-16 04:32] LABS: INR 3.2; Prothrombin Time 35.5 Seconds (9.4-12.1)
[2022-04-16 04:35] LABS: Activated Partial Thrombo Time 48.8 Seconds (26.0-36.0)
[2022-04-16 04:46] LABS: Alanine Aminotransferase 12 Units/L (7-52); Albumin 3.8 g/dL (3.5-5.7); Albumin/Globulin Ratio 1.3 (1.1-2.2); Alkaline Phosphatase 72 Units/L (34-104); Aspartate Amino Transferase 11 Units/L (13-39); BUN/Creatinine Ratio 22 (6-26); Bilirubin,Direct 0.1 mg/dL (0.0-0.2); Bilirubin,Indirect 0.4 mg/dL (0.0-1.0); Bilirubin,Total 0.5 mg/dL (0.3-1.0); Blood Urea Nitrogen 31 mg/dL (8-23); Calcium 8.8 mg/dL (8.6-10.3); Carbon Dioxide 26 mEq/L (23-29); Chloride 108 mEq/L (98-107); Globulin 2.9 g/dL (2.4-3.5); Glucose 213 mg/dL (70-105); Osmolality,Calculated 305 (280-300); Potassium 4.8 mEq/L (3.5-5.1); Sodium 141 mEq/L (136-145); Total Protein 6.7 g/dL (6.4-8.9); Troponin I < 0.03 ng/mL (< 0.04); eGFR For African Americans 43 (> 60); eGFR For Non-African Americans 36 (> 60)
[2022-04-16 04:51] LABS: Influenza A PCR Negative (Negative); Influenza B PCR Negative (Negative); Resp. Syncytial Virus PCR Negative (Negative)
[2022-04-16 04:57] LABS: SARS-CoV-2 by PCR (In House) Negative (Negative)
[2022-04-16] MEDS ORDERED: Furosemide 40 MG/4 ML VIAL IVP ONE (05:42)
[2022-04-16] MEDS ORDERED: Naloxone 0.4 MG/ML INJ IVP PRN (07:36)
[2022-04-16] MEDS ORDERED: Ondansetron 4 MG/2 ML VIAL IVP PRN (07:36)
[2022-04-16] MEDS ORDERED: Perflutren Lipid Microsphere 1.3 ML in 0.9 % Sodium Chloride 8.7 ML IVP PRN (07:38)
[2022-04-16] MEDS ORDERED: Dextrose Gel 15 GM/37.5 ML TUBE PO PRN ×2 (07:40)
[2022-04-16] MEDS ORDERED: D5% in Water 1,000 ML IVC PRN (07:40)
[2022-04-16] MEDS ORDERED: *HR* Dextrose 50 % in Water (Syg) 50 ML SYRINGE IVP PRN (07:40)
[2022-04-16] MEDS: Furosemide 40 MG/4 ML VIAL IVP SCH ×2 (09:26→20:41)
[2022-04-16] MEDS ORDERED: Warfarin perPT PO PRN (10:27)
[2022-04-16] MEDS: DilTIAZem CD (24hr) 180 MG CAP.ER.24H PO SCH (11:04)
[2022-04-16] MEDS: Insulin LISPRO 300 UNITS/3 ML VIAL SUBQ SCH ×2 (12:14→18:10)
[2022-04-16] MEDS: Levalbuterol 1 PUFF INHALER IH SCH ×3 (15:16→22:25)
[2022-04-16] MEDS ORDERED: *HR* Warfarin 4 MG TABLET PO ONE (18:00)
[2022-04-16] MEDS: Metoprolol XL (24 HR) Succ 50 MG TAB.ER.24H PO SCH (18:10)
[2022-04-16] MEDS: *HR* LORazepam 0.5 MG TABLET PO PRN (18:10)
[2022-04-16] MEDS: Budesonide/Formoterol 160/4.5 1 PUFF INH IH SCH (22:23)
[2022-04-17] MEDS: Levalbuterol 1 PUFF INHALER IH SCH ×4 (04:25→22:42)
[2022-04-17 06:25] LABS: Basophils % 0.1 %; Hematocrit 33.8 % (35.3-44.9); Hemoglobin 10.5 g/dL (11.5-15.4); Immature Granulocytes % 0.6 % (0-4); Lymphocytes % 8.9 %; Mean Corpuscular HGB Conc 31.1 g/dL (31.6-35.5); Mean Corpuscular Hemoglobin 25.7 pg (28.0-33.3); Mean Corpuscular Volume 82.6 fL (83.0-100.0); Monocytes # 0.5 K/mcL (0.0-1.3); Neutrophils # 9.3 K/mcL (1.6-8.9); Platelet Count 272 K/mcL (140-400); Red Blood Count 4.09 M/mcL (3.82-4.97); Red Cell Distribution Width 19.6 % (11.5-14.5); Segmented Neutrophils % 85.4 %; White Blood Count 10.8 K/mcL (4.3-11.1)
[2022-04-17 07:15] LABS: Prothrombin Time 26.3 Seconds (9.4-12.1)
[2022-04-17 07:16] LABS: INR 2.4
[2022-04-17 08:19] LABS: Calcium 9.3 mg/dL (8.6-10.3); Magnesium 1.6 mg/dL (1.6-2.6)
[2022-04-17] MEDS ORDERED: Furosemide 40 MG/4 ML VIAL IVP SCH (08:30)
[2022-04-17] MEDS: DilTIAZem CD (24hr) 180 MG CAP.ER.24H PO SCH (09:13)
[2022-04-17] MEDS: *HR* SitaGLIPtin 25 MG TABLET PO SCH (09:13)
[2022-04-17] MEDS: Levothyroxine 25 MCG TABLET PO SCH (09:14)
[2022-04-17] MEDS: Insulin LISPRO 300 UNITS/3 ML VIAL SUBQ SCH ×3 (09:17→17:10)
[2022-04-17] MEDS: Budesonide/Formoterol 160/4.5 1 PUFF INH IH SCH ×2 (11:12→22:42)
[2022-04-17] MEDS: predniSONE 20 MG TABLET PO SCH (13:11)
[2022-04-17] MEDS: Furosemide 40 MG/4 ML VIAL IVP SCH (13:11)
[2022-04-17] MEDS: Azithromycin 250 MG TABLET PO SCH (13:11)
[2022-04-17] MEDS: Metoprolol XL (24 HR) Succ 50 MG TAB.ER.24H PO SCH (17:10)
[2022-04-17] MEDS ORDERED: *HR* Warfarin 5 MG TABLET PO ONE (18:00)
[2022-04-18] MEDS: Levalbuterol 1 PUFF INHALER IH SCH ×4 (03:47→20:16)
[2022-04-18 05:55] LABS: INR 3.4; Prothrombin Time 37.3 Seconds (9.4-12.1)
[2022-04-18 06:18] LABS: Calcium 9.1 mg/dL (8.6-10.3); Potassium 3.9 mEq/L (3.5-5.1)
[2022-04-18] MEDS: Furosemide 40 MG/4 ML VIAL IVP SCH (07:15)
[2022-04-18] MEDS: Levothyroxine 25 MCG TABLET PO SCH (09:02)
[2022-04-18] MEDS: DilTIAZem CD (24hr) 180 MG CAP.ER.24H PO SCH (09:02)
[2022-04-18] MEDS: predniSONE 20 MG TABLET PO SCH (09:03)
[2022-04-18] MEDS: Azithromycin 250 MG TABLET PO SCH (09:03)
[2022-04-18] MEDS: *HR* SitaGLIPtin 25 MG TABLET PO SCH (09:03)
[2022-04-18] MEDS: Insulin LISPRO 300 UNITS/3 ML VIAL SUBQ SCH ×3 (09:05→16:56)
[2022-04-18] MEDS: Budesonide/Formoterol 160/4.5 1 PUFF INH IH SCH ×2 (10:51→20:16)
[2022-04-18 14:18] LABS: Calcium 9.2 mg/dL (8.6-10.3); Potassium 4.2 mEq/L (3.5-5.1)
[2022-04-18] MEDS: Metoprolol XL (24 HR) Succ 50 MG TAB.ER.24H PO SCH (16:57)
[2022-04-18] MEDS: *HR* LORazepam 0.5 MG TABLET PO PRN (20:22)
[2022-04-19 02:18] LABS: Calcium 8.9 mg/dL (8.6-10.3); Potassium 3.9 mEq/L (3.5-5.1)
[2022-04-19 02:26] LABS: INR 3.9; Prothrombin Time 42.7 Seconds (9.4-12.1)
[2022-04-19] MEDS: Levalbuterol 1 PUFF INHALER IH SCH ×4 (03:57→20:08)
[2022-04-19] MEDS: Insulin LISPRO 300 UNITS/3 ML VIAL SUBQ SCH ×3 (09:47→17:20)
[2022-04-19] MEDS: DilTIAZem CD (24hr) 180 MG CAP.ER.24H PO SCH (09:47)
[2022-04-19] MEDS: Levothyroxine 25 MCG TABLET PO SCH (09:48)
[2022-04-19] MEDS: predniSONE 20 MG TABLET PO SCH (09:48)
[2022-04-19] MEDS: *HR* SitaGLIPtin 25 MG TABLET PO SCH (09:48)
[2022-04-19] MEDS: Azithromycin 250 MG TABLET PO SCH (09:48)
[2022-04-19] MEDS: Furosemide 40 MG TABLET PO SCH ×2 (09:48→17:19)
[2022-04-19] MEDS: Budesonide/Formoterol 160/4.5 1 PUFF INH IH SCH ×2 (11:34→20:08)
[2022-04-19] MEDS: Acetaminophen 325 MG TABLET PO PRN ×2 (12:07→17:20)
[2022-04-19] MEDS: Metoprolol XL (24 HR) Succ 50 MG TAB.ER.24H PO SCH (17:19)
[2022-04-19] MEDS: *HR* LORazepam 0.5 MG TABLET PO PRN (20:39)
[2022-04-20 03:35] LABS: Prothrombin Time 33.7 Seconds (9.4-12.1)
[2022-04-20 03:36] LABS: Calcium 8.7 mg/dL (8.6-10.3); Potassium 4.2 mEq/L (3.5-5.1)
[2022-04-20] MEDS: Levalbuterol 1 PUFF INHALER IH SCH ×4 (04:17→22:18)
[2022-04-20] MEDS: Budesonide/Formoterol 160/4.5 1 PUFF INH IH SCH ×2 (10:14→22:18)
[2022-04-20] MEDS: Insulin LISPRO 300 UNITS/3 ML VIAL SUBQ SCH ×3 (10:34→16:54)
[2022-04-20] MEDS: Azithromycin 250 MG TABLET PO SCH (10:35)
[2022-04-20] MEDS: Levothyroxine 25 MCG TABLET PO SCH (10:35)
[2022-04-20] MEDS: DilTIAZem CD (24hr) 180 MG CAP.ER.24H PO SCH (10:35)
[2022-04-20] MEDS: *HR* SitaGLIPtin 25 MG TABLET PO SCH (10:35)
[2022-04-20] MEDS: Furosemide 40 MG TABLET PO SCH ×2 (10:35→16:54)
[2022-04-20] MEDS: predniSONE 20 MG TABLET PO SCH (10:36)
[2022-04-20] MEDS: Acetaminophen 325 MG TABLET PO PRN (10:42)
[2022-04-20] MEDS: Metoprolol XL (24 HR) Succ 50 MG TAB.ER.24H PO SCH (16:54)
[2022-04-20] MEDS ORDERED: *HR* Warfarin 0.5 MG TABLET PO ONE (18:00)
[2022-04-20] MEDS ORDERED: Insulin DETEMIR 100 UNIT/ML X5UNITS SUBQ ONE (21:30)
[2022-04-21] MEDS: Levalbuterol 1 PUFF INHALER IH SCH ×4 (03:35→21:29)
[2022-04-21 07:14] LABS: Prothrombin Time 22.5 Seconds (9.4-12.1)
[2022-04-21] MEDS: Furosemide 40 MG TABLET PO SCH ×2 (08:21→16:42)
[2022-04-21] MEDS: DilTIAZem CD (24hr) 180 MG CAP.ER.24H PO SCH (08:21)
[2022-04-21] MEDS: Azithromycin 250 MG TABLET PO SCH (08:21)
[2022-04-21] MEDS: predniSONE 20 MG TABLET PO SCH (08:21)
[2022-04-21] MEDS: Levothyroxine 25 MCG TABLET PO SCH (08:21)
[2022-04-21] MEDS: *HR* SitaGLIPtin 25 MG TABLET PO SCH (08:21)
[2022-04-21] MEDS: Insulin LISPRO 300 UNITS/3 ML VIAL SUBQ SCH ×3 (08:29→16:43)
[2022-04-21] MEDS: Budesonide/Formoterol 160/4.5 1 PUFF INH IH SCH ×2 (09:15→21:30)
[2022-04-21] MEDS: Acetaminophen 325 MG TABLET PO PRN (15:56)
[2022-04-21] MEDS: Metoprolol XL (24 HR) Succ 50 MG TAB.ER.24H PO SCH (16:42)
[2022-04-21] MEDS ORDERED: *HR* Warfarin 5 MG TABLET PO ONE (18:00)
[2022-04-21] MEDS ORDERED: *HR* Warfarin 2.5 MG TABLET PO ONE (18:00)
[2022-04-22 02:57] LABS: INR 1.6
[2022-04-22 03:03] LABS: Calcium 9.1 mg/dL (8.6-10.3); Potassium 4.1 mEq/L (3.5-5.1)
[2022-04-22] MEDS: Levalbuterol 1 PUFF INHALER IH SCH ×4 (03:45→22:49)
[2022-04-22] MEDS: DilTIAZem CD (24hr) 180 MG CAP.ER.24H PO SCH (08:06)
[2022-04-22] MEDS: Furosemide 40 MG TABLET PO SCH ×2 (08:06→17:44)
[2022-04-22] MEDS: Levothyroxine 25 MCG TABLET PO SCH (08:06)
[2022-04-22] MEDS: Insulin LISPRO 300 UNITS/3 ML VIAL SUBQ SCH ×3 (08:06→17:49)
[2022-04-22] MEDS: *HR* SitaGLIPtin 25 MG TABLET PO SCH (08:06)
[2022-04-22] MEDS: Budesonide/Formoterol 160/4.5 1 PUFF INH IH SCH ×2 (11:33→22:49)
[2022-04-22] MEDS: Acetaminophen 325 MG TABLET PO PRN (12:05)
[2022-04-22] MEDS: Metoprolol XL (24 HR) Succ 50 MG TAB.ER.24H PO SCH (17:44)
[2022-04-22] MEDS ORDERED: *HR* Warfarin 5 MG TABLET PO ONE (18:00)
[2022-04-23] MEDS: Levalbuterol 1 PUFF INHALER IH SCH ×4 (04:34→22:55)
[2022-04-23] MEDS: Furosemide 40 MG TABLET PO SCH ×2 (08:05→16:48)
[2022-04-23] MEDS: *HR* SitaGLIPtin 25 MG TABLET PO SCH (08:05)
[2022-04-23] MEDS: DilTIAZem CD (24hr) 180 MG CAP.ER.24H PO SCH (08:06)
[2022-04-23] MEDS: Levothyroxine 25 MCG TABLET PO SCH (08:06)
[2022-04-23] MEDS: Insulin LISPRO 300 UNITS/3 ML VIAL SUBQ SCH ×3 (08:46→16:49)
[2022-04-23] MEDS: Budesonide/Formoterol 160/4.5 1 PUFF INH IH SCH ×2 (09:30→22:55)
[2022-04-23 15:19] LABS: INR 1.6; Prothrombin Time 17.6 Seconds (9.4-12.1)
[2022-04-23] MEDS: Metoprolol XL (24 HR) Succ 50 MG TAB.ER.24H PO SCH (16:48)
[2022-04-23] MEDS ORDERED: *HR* Warfarin 5 MG TABLET PO ONE (18:00)
[2022-04-23] MEDS: Acetaminophen 325 MG TABLET PO PRN (20:02)
[2022-04-24] MEDS: Levalbuterol 1 PUFF INHALER IH SCH ×4 (04:20→21:52)
[2022-04-24 06:12] LABS: INR 1.7; Prothrombin Time 19.3 Seconds (9.4-12.1)
[2022-04-24 06:21] LABS: Calcium 8.9 mg/dL (8.6-10.3); Potassium 3.8 mEq/L (3.5-5.1)
[2022-04-24] MEDS: DilTIAZem CD (24hr) 180 MG CAP.ER.24H PO SCH (08:46)
[2022-04-24] MEDS: *HR* SitaGLIPtin 25 MG TABLET PO SCH (08:46)
[2022-04-24] MEDS: Furosemide 40 MG TABLET PO SCH ×2 (08:46→17:12)
[2022-04-24] MEDS: Insulin LISPRO 300 UNITS/3 ML VIAL SUBQ SCH ×3 (08:46→18:00)
[2022-04-24] MEDS: Levothyroxine 25 MCG TABLET PO SCH (08:46)
[2022-04-24] MEDS: Budesonide/Formoterol 160/4.5 1 PUFF INH IH SCH ×2 (11:35→21:52)
[2022-04-24] MEDS: Metoprolol XL (24 HR) Succ 50 MG TAB.ER.24H PO SCH (17:09)
[2022-04-24] MEDS: Acetaminophen 325 MG TABLET PO PRN (17:12)
[2022-04-24] MEDS ORDERED: *HR* Warfarin 5 MG TABLET PO ONE (18:00)
[2022-04-25] MEDS: Levalbuterol 1 PUFF INHALER IH SCH ×4 (04:13→20:35)
[2022-04-25 04:14] LABS: INR 1.9; Prothrombin Time 21.6 Seconds (9.4-12.1)
[2022-04-25] MEDS: DilTIAZem CD (24hr) 180 MG CAP.ER.24H PO SCH (08:15)
[2022-04-25] MEDS: *HR* SitaGLIPtin 25 MG TABLET PO SCH (08:15)
[2022-04-25] MEDS: Furosemide 40 MG TABLET PO SCH ×2 (08:15→17:19)
[2022-04-25] MEDS: Levothyroxine 25 MCG TABLET PO SCH (08:15)
[2022-04-25] MEDS: Insulin LISPRO 300 UNITS/3 ML VIAL SUBQ SCH ×3 (08:20→17:20)
[2022-04-25] MEDS: Budesonide/Formoterol 160/4.5 1 PUFF INH IH SCH ×2 (09:22→20:36)
[2022-04-25] MEDS: Metoprolol XL (24 HR) Succ 50 MG TAB.ER.24H PO SCH (17:19)
[2022-04-25] MEDS ORDERED: *HR* Warfarin 2.5 MG TABLET PO ONE (18:00)
[2022-04-25] MEDS: Acetaminophen 325 MG TABLET PO PRN (20:23)
[2022-04-26] MEDS: Levalbuterol 1 PUFF INHALER IH SCH ×4 (04:28→20:18)
[2022-04-26 05:20] LABS: INR 2.3; Prothrombin Time 25.6 Seconds (9.4-12.1)
[2022-04-26] MEDS: *HR* SitaGLIPtin 25 MG TABLET PO SCH (08:28)
[2022-04-26] MEDS: Insulin LISPRO 300 UNITS/3 ML VIAL SUBQ SCH ×3 (08:28→17:14)
[2022-04-26] MEDS: DilTIAZem CD (24hr) 180 MG CAP.ER.24H PO SCH (08:28)
[2022-04-26] MEDS: Levothyroxine 25 MCG TABLET PO SCH (08:28)
[2022-04-26] MEDS: Furosemide 40 MG TABLET PO SCH ×2 (08:28→17:14)
[2022-04-26] MEDS: Budesonide/Formoterol 160/4.5 1 PUFF INH IH SCH ×2 (10:47→20:18)
[2022-04-26] MEDS: Metoprolol XL (24 HR) Succ 50 MG TAB.ER.24H PO SCH (17:14)
[2022-04-26] MEDS ORDERED: *HR* Warfarin 2 MG TABLET PO ONE (18:00)
[2022-04-26] MEDS: Acetaminophen 325 MG TABLET PO PRN (20:27)
[2022-04-26] MEDS: *HR* LORazepam 0.5 MG TABLET PO PRN (20:27)
[2022-04-27] MEDS: Levalbuterol 1 PUFF INHALER IH SCH ×4 (04:27→20:32)
[2022-04-27] MEDS: Insulin LISPRO 300 UNITS/3 ML VIAL SUBQ SCH ×3 (10:11→18:05)
[2022-04-27] MEDS: DilTIAZem CD (24hr) 180 MG CAP.ER.24H PO SCH (10:11)
[2022-04-27] MEDS: Levothyroxine 25 MCG TABLET PO SCH (10:11)
[2022-04-27] MEDS: *HR* SitaGLIPtin 25 MG TABLET PO SCH (10:11)
[2022-04-27] MEDS: Acetaminophen 325 MG TABLET PO PRN ×2 (10:13→18:11)
[2022-04-27] MEDS: Furosemide 40 MG TABLET PO SCH ×2 (10:18→18:05)
[2022-04-27] MEDS: Budesonide/Formoterol 160/4.5 1 PUFF INH IH SCH ×2 (10:53→20:32)
[2022-04-27 13:48] LABS: INR 2.2; Prothrombin Time 24.3 Seconds (9.4-12.1)
[2022-04-27] MEDS ORDERED: *HR* Warfarin 2.5 MG TABLET PO ONE (18:00)
[2022-04-27] MEDS: Metoprolol XL (24 HR) Succ 50 MG TAB.ER.24H PO SCH (18:04)
[2022-04-27] MEDS: *HR* LORazepam 0.5 MG TABLET PO PRN (20:45)
[2022-04-28 03:41] LABS: Prothrombin Time 22.5 Seconds (9.4-12.1)
[2022-04-28 04:23] VITALS: TEMP 97.7
[2022-04-28] MEDS: Levalbuterol 1 PUFF INHALER IH SCH ×2 (04:38→10:04)
[2022-04-28] MEDS: Insulin LISPRO 300 UNITS/3 ML VIAL SUBQ SCH (08:37)
[2022-04-28] MEDS: DilTIAZem CD (24hr) 180 MG CAP.ER.24H PO SCH (08:37)
[2022-04-28] MEDS: Furosemide 40 MG TABLET PO SCH (08:37)
[2022-04-28] MEDS: Levothyroxine 25 MCG TABLET PO SCH (08:37)
[2022-04-28] MEDS: *HR* SitaGLIPtin 25 MG TABLET PO SCH (08:37)
[2022-04-28 08:42] VITALS: BP 136/62; PULSE 65
[2022-04-28] MEDS: Budesonide/Formoterol 160/4.5 1 PUFF INH IH SCH (10:04)
[2022-04-28 10:07] VITALS: O2SAT 98
[2022-04-28] MEDS ORDERED: *HR* Warfarin 5 MG TABLET PO ONE (18:00)
== END 2022-04-28 11:10 | disposition home health service (06) | DRG 291 ==
LOC: SUATTDRO → EMEROOARM 04:00 → 3NENU 04:00 → SUATTDRO 04-17 08:41
PROVIDERS: ADMIT Internal Medicine; ATTEND Internal Medicine